=== PATIENT | male | born 1935 | race Caucasian/White ===

== ENCOUNTER 2017-04-07 08:00 | Day surgery (SDC) | payer BC ==
[~2017-04-07] VITALS: Ht 174 cm; Wt 75.0 kg
[~2017-04-07 08:00] MED LIST: AMLO-114 PO; ASPEC81 PO; ATOR-26 PO; B-COCAP20 PO; CALCTAB5 PO; CEFAZOLIN 1000MG/55 ML D5W IV SCH; CLON1TAB3 PO; CTP1 PO; D5W AND 1/4NSS 1,000 ML IV SCH; DOCU100C31 PO; HYDR-4717 PO; LSX40 PO; MCRK20 PO; METO50TA7 PO; MGNO400 PO; MRLP17X PO; OLME20TA26 PO; PANT40TA PO; SERT-234 PO; TAMS0.4C38 PO
[2017-04-07 08:29] VITALS: BP 176/62; PULSE 52; TEMP 37.1; O2SAT 97; Ht 174 cm; Wt 75.0 kg
--- NOTE | 2017-04-07 08:55 | History and Physical ---
History & Physical Date of Service Apr 07, 2017. History & Physical CC: End stage renal disease, malfunctioning left arm fistula HPI: Mr. Meyers is an 80-year-old gentleman with a history of hypertension, coronary artery occlusive disease and chronic kidney disease. He was sent over for evaluation for placement of the fistula being his GFR is approximately 13. He had a left antecubital avf created. He is having problems with his runs. ALLERGIES: NEOSPORIN. MEDICATIONS: Included amlodipine, aspirin, Benicar, calcium, clonidine, Colace , doxycycline, Epogen, Ferrex, hydralazine, K-Dur, Lipitor, Metamucil, metoprolol, pantoprazole, sertraline, tamsulosin. These were reviewed, no changes were made. PAST MEDICAL HISTORY: Positive for basal cell carcinoma, diabetes mellitus, coronary occlusive disease, hypertension, kidney disease, status post angioplasty. FAMILY HISTORY: Noncontributory. SOCIAL HISTORY: He is a social drinker, former smoker. He is . REVIEW OF SYSTEMS: Ten systems were reviewed. No pertinent findings were elicited. PHYSICAL EXAMINATION: The patient is awake, oriented x3. His blood pressure is 174/64 in the left, 180/60 in the right. Head and neck within normal limits , no carotid bruits. Lungs are clear. Heart: reg rate and rhythm. Abdominal exam is benign. Vascular exam of the radials, carotids, superficial temporal arteries are +2 bilaterally. Femorals are +2. There is no evidence of ischemic changes of either upper or lower extremities. Good thrill in left arm fistula IMPRESSION: Chronic renal failure. Malfunctioning left arm avf PLAN: Patient is admitted for a fistulogram with possible intervention. I have discussed the risks options and benefits of the procedure with the patient. The patient understands the risks options and benefits and agrees to the procedure.
[2017-04-07] MEDS ORDERED: MIDAZOLAM HCL 1 MG/ML 2ML VIAL ONE (09:55)
[2017-04-07] MEDS ORDERED: FENTANYL CITRATE INJ 50 MCG/1 ML 2 ML VIAL ONE (09:55)
--- NOTE | 2017-04-07 09:58 | History & Physical Bridge Note ---
H&P Re-Evaluation Bridge Note: I have examined the patient, reviewed the History & Physical and in the interval since the performance of the History & Physical I have noted the following changes of clinical significance: No changes noted
--- NOTE | 2017-04-07 09:59 | Procedure Note ---
Pre-Mod Sedation Assessment General Date of Moderate Sedation: Apr 07, 2017. Vital Signs: Vital Signs Past 12 Hours Date Time Temp Pulse Resp B/P (MAP) Pulse Ox O2 Delivery O2 Flow Rate FiO2 04/07/17 08:29 37.1 52 20 176/62 (100) 97 Room Air Pre-Sedation Airway Assessment Oral Cavity: Dentures Smoking Status: Former Smoker Mallampati Classification: Class I ASA Classification: Class III Notes The planned sedation has been discussed with the patient and consent obtained. I have identified the patient, determined the appropriateness of sedation and have assessed the patient immediately prior to the procedure. All medicine(s) and interventions are by my order.
[2017-04-07 10:03] VITALS: BP 176/62; PULSE 52; TEMP 37.1; O2SAT 97
[2017-04-07] MEDS ORDERED: LIDOCAINE HCL 1% 20 ML VIAL INJ ONE (10:39)
[2017-04-07] MEDS ORDERED: MIDAZOLAM HCL 1 MG/ML 2ML VIAL IV ONE (10:55)
[2017-04-07] MEDS ORDERED: FENTANYL CITRATE INJ 50 MCG/1 ML 2 ML VIAL IV ONE (10:56)
[2017-04-07] MEDS ORDERED: OPTIRAY 300 IV ONE (11:27)
--- NOTE | 2017-04-07 11:32 | Procedure Note ---
Post-Moderate Sedation Plan General Date of Moderate Sedation Apr 07, 2017. Vital Signs: Vital Signs Past 12 Hours Date Time Temp Pulse Resp B/P (MAP) Pulse Ox O2 Delivery O2 Flow Rate FiO2 04/07/17 10:03 37.1 52 20 176/62 97 04/07/17 08:29 37.1 52 20 176/62 (100) 97 Room Air Review - Discharge Plan Post Moderate Sedation Plan: On clinical assessment, the patient appears to have tolerated the conscious sedation without complications. Patient is recovering as anticipated. Patient will continue to be monitored by nursing and may be discharged when conscious sedation discharge criteria are met.
--- NOTE | 2017-04-07 11:32 | [facility] Post Operative Brief Note ---
Immediate Operative Summary Operative Date Apr 07, 2017. Pre-Operative Diagnosis malfunctioning fistula Post-Operative Diagnosis same Procedure(s) Performed Fistulogram, Percutaneous Transluminal Angioplasty Venous, Coiling of Venous Branch of Left Fistula, Moderate Concious Sedation [address] Nance Trimmer Meat Surgeon(s) Nevaeh Bowers MD Estimated Blood Loss 10 ml Findings Stenosis of upper cephalic vein, large side branch Specimens none Anesthesia Local with sedation Complication(s) None Disposition
--- NOTE | 2017-04-07 11:35 | Discharge Instructions ---
Discharge Instructions Date of Service Apr 07, 2017. Visit Reason for Visit: End Stage Renal Disease Discharge Discharge Diagnosis / Problem: Malfunctioning left upper arm fistula Discharge Goals Goal(s): Therapeutic intervention Activity Recommendations Activity Limitations: per Instructions/Follow-up section Anesthesia . Post Anesthesia Instructions: If you have had General Anesthesia or IV Sedation: * Do not drive today. * Resume driving when surgeon permits. * Do not make important decisions or sign legal documents today. * Call surgeon for: 1. Temperature elevations greater than 101 degrees F. 2. Uncontrollable pain. 3. Excessive bleeding. 4. Persistent nausea and vomiting. 5. Medication intolerance (nausea, vomiting or rash). * For nausea and vomiting use only clear liquids such as: tea, soda, bouillon until nausea subsides, then gradually increase diet as tolerated. * If you have any concerns or questions, call your surgeon's office. If physician is unavailable and it is an emergency, call 911 or go to the nearest emergency room. . Instructions / Follow-Up Instructions / Follow-Up Call [phone] with any questions or concerns. SPECIAL CARE INSTRUCTIONS: Medications: * Continue to take your medications as directed. If you have been given a prescription for Plavix, please fill it immediately and take as directed. Incision Care: * Your puncture site may have some bruising and minor swelling for about one week. * You will have a small dressing covering your puncture site. You may remove the dressing after 24 hours and shower. You may let the warm soapy water run over it, but be sure to dry the puncture site well and keep it dry. * DO NOT IMMERSE THE INCISION IN A TUB/POOL/etc. UNTIL HEALED. * Puncture sites should be kept covered with a band-aid until it begins to heal. Restrictions: * Depending on whether you leg or arm was punctured to access the arteries, you will be required to lay flat, hold your arm still, or both, for about 4 hours after the procedure to prevent bleeding. * Limit your activity for the first 48 hours. You may walk and go up and down steps. Avoid excessive bending or movement at the puncture site. Possible Complications: * Excessive Swelling - after blood flow is improved you may notice increased swelling in the lower legs. This is a normal response. This usually depends on the amount of blockages in the leg, how long they have been there prior to your procedure and how much blood flow was restored. Elevating your legs will help to improve this. Please notify our office ([phone] ) if the swelling does not go away after lying in bed overnight. * Infection/Drainage/Bleeding - Drainage or bleeding from the puncture site should be minimal. If you have excessive bleeding or drainage, call our office ([phone]) right away. * Pain - You may experience some mild pain or soreness at your puncture site. If your pain does not improve, please contact our office ([phone]). Call your doctor and seek emergent treatment if you develop: * Temperature above 101 degrees * Any fever or chills * Any redness or purulent drainage from the puncture site * Any new dusky/blue colored toes or feet with coolness or sharp or aching pain. SKIN IRRITATION: * You may experience some redness and/or swelling in the area where radiation was administered. If any skin irritation occurs, please contact your family physician. FOLLOW UP VISIT: Keep any scheduled doctor appointments. Diet Recommendations Recommended Home Diet: resume previous diet Procedures Procedures Performed: Fistulogram, Percutaneous Transluminal Angioplasty Venous, Coiling of Venous Branch of Left Fistula, Moderate Concious Sedation 1055 to 1129 Pending Studies Studies pending at discharge: no Medical Emergencies . Who to Call and When: Medical Emergencies: If at any time you feel your situation is an emergency, please call 911 immediately. . Non-Emergent Contact Non-Emergency issues call your: Surgeon . . "Provider Documentation" section prepared by Ciro Nance. .
[2017-04-07 11:43] VITALS: BP 178/57; PULSE 52; TEMP 36.3; O2SAT 98
[2017-04-07 12:13] VITALS: BP 160/70; PULSE 50; O2SAT 100
[2017-04-07 12:43] VITALS: BP 164/60; PULSE 54; TEMP 36.4; O2SAT 100
--- NOTE | 2017-04-07 13:38 | DIAGNOSTIC IMAGING REPORT ---
DATE OF PROCEDURE: 04/07/2017 PREOPERATIVE DIAGNOSIS: Left arm AV fistula dysfunction. POSTOPERATIVE DIAGNOSIS: Left arm AV fistula dysfunction. PROCEDURES: Left arm fistulogram, venoplasty of cephalic vein with 5 x 40 and 7 x 60 mm balloons, placement of 5 coils 6 mm -- left cephalic forearm, completion fistulogram. SURGEON: Dr. Ciro Nance. PREVENTION COORDINATOR: Dr. Jennifer Bowers. BLOOD LOSS: 10 mL. COMPLICATIONS: None. CONDITION: Stable. INDICATIONS: Mr. Angelo Meyers is an 81-year-old gentleman with end-stage renal disease, on hemodialysis through a left arm brachiocephalic AV fistula. He has had difficulties with flows during dialysis recently. For this reason, he was recommended to undergo a fistulogram. The risks, benefits and alternatives were discussed with the patient and he consented to the procedure. DESCRIPTION OF PROCEDURE: The patient was taken to the [facility] OR and placed in supine position. His left forearm and chest were prepped and draped in the usual sterile fashion. A safety timeout was performed and the patient, procedure, and sidedness were correctly identified. Sedation was administered. The patient was given 1 mg of Versed and 50 of fentanyl. Local anesthesia was used to anesthetize the skin overlying the cephalic vein in the antecubital fossa. A micropuncture needle was used to access the fistula and a micropuncture sheath placed into the left cephalic vein. Fistulogram was performed and showed an area of stenosis in the cephalic vein in the level of the mid arm. A 0.035 Glidewire was passed through the micropuncture sheath and into the cephalic vein. This easily passed through the area of stenosis. The micropuncture sheath was exchanged for a 5-Bahamian sheath. A 5 x 40 balloon was placed into the left cephalic vein and passed proximally to the cephalic arch. It was inflated there and showed no areas of stenosis of the cephalic arch. The balloon was moved back to the mid cephalic vein at the level of the mid humerus. This was inflated with some improvement in the stenosis. Given that there was still some degree of narrowing there, we upsized to a 7 x 60 mm balloon. This was inflated in the same area of stenosis with resolution of the narrowing. Completion fistulogram showed resolution of the stenosis. The fistula was also noted to have a large side branch coming off just proximal to the antecubital fossa. We were able to pass on 0.035 Glidewire down the side branch. A glide catheter was placed over the wire and into the side branch. We then began deploying coils through the catheter into the cephalic side branch in the forearm. A total of 5 coils were placed. This showed decreased flow through the side branch following coil placement. The thrill in the fistula had improved following angioplasty and coil placement. A 5-Bahamian sheath was removed and manual pressure was held over the access site for approximately 5 minutes with good hemostasis. Sterile dressing was applied. The patient tolerated the procedure well and was transferred to the PACU in stable condition. Dr. Ciro Nance was present for the entire procedure. I, Dr. Nance was present and scrubed for the entire procedure. [facility]
== END 2017-04-07 12:43 | disposition home or self-care (01) ==
LOC: C.ACU 08:00
PROVIDERS: ATTEND Surgery Vascular Surgery
DX: T82.858A Stenosis of other vascular prosthetic devices, implants and grafts, initial encounter (principal); Y83.1 Surgical operation with implant of artificial internal device as the cause of abnormal reaction of the patient, or of later complication, without mention of misadventure at the time of the procedure; N18.6 End stage renal disease; I12.0 Hypertensive chronic kidney disease with stage 5 chronic kidney disease or end stage renal disease; I25.10 Atherosclerotic heart disease of native coronary artery without angina pectoris; Z85.828 Personal history of other malignant neoplasm of skin; Z83.3 Family history of diabetes mellitus; E11.9 Type 2 diabetes mellitus without complications; Z98.890 Other specified postprocedural states; Z87.891 Personal history of nicotine dependence

== ENCOUNTER 2017-09-01 05:39 | Day surgery (SDC) | payer BC ==
[~2017-09-01] VITALS: Ht 172.7 cm; Wt 70.0 kg
[~2017-09-01 05:39] MED LIST changes: -CEFAZOLIN 1000MG/55 ML D5W IV SCH; -CLON1TAB3 PO; -CTP1 PO; -D5W AND 1/4NSS 1,000 ML IV SCH; -LSX40 PO; -MCRK20 PO; -MGNO400 PO
[2017-09-01] MEDS ORDERED: D5W AND 1/4NSS 1,000 ML IV ONE (06:00)
[2017-09-01] MEDS ORDERED: CEFAZOLIN 1000MG IV PUSH 5 ML IV SCH (06:00)
[2017-09-01 06:09] VITALS: BP 161/56; PULSE 52; TEMP 36.8; O2SAT 99; Ht 172.7 cm; Wt 70.0 kg
--- NOTE | 2017-09-01 06:34 | History and Physical ---
History & Physical Date of Service Sep 01, 2017. History & Physical CC: End stage renal disease, malfunctioning left arm fistula HPI: Mr. Meyers is an 80-year-old gentleman with a history of hypertension, coronary artery occlusive disease and chronic kidney disease. He was sent over for evaluation for the function of his fistula. He had a left antecubital avf created. He is having problems with his runs. ALLERGIES: NEOSPORIN. MEDICATIONS: Included amlodipine, aspirin, Benicar, calcium, clonidine, Colace , doxycycline, Epogen, Ferrex, hydralazine, K-Dur, Lipitor, Metamucil, metoprolol, pantoprazole, sertraline, tamsulosin. These were reviewed, no changes were made. PAST MEDICAL HISTORY: Positive for basal cell carcinoma, diabetes mellitus, coronary occlusive disease, hypertension, kidney disease, status post angioplasty. FAMILY HISTORY: Noncontributory. SOCIAL HISTORY: He is a social drinker, former smoker. He is . REVIEW OF SYSTEMS: Ten systems were reviewed. No pertinent findings were elicited. PHYSICAL EXAMINATION: The patient is awake, oriented x3. His blood pressure is 174/64 in the left, 180/60 in the right. Head and neck within normal limits , no carotid bruits. Lungs are clear. Heart: reg rate and rhythm. Abdominal exam is benign. Vascular exam of the radials, carotids, superficial temporal arteries are +2 bilaterally. Femorals are +2. There is no evidence of ischemic changes of either upper or lower extremities. Good thrill in left arm fistula IMPRESSION: Chronic renal failure. Malfunctioning left arm avf PLAN: Patient is admitted for a fistulogram with possible intervention. I have discussed the risks options and benefits of the procedure with the patient. The patient understands the risks options and benefits and agrees to the procedure.
[2017-09-01] MEDS ORDERED: MIDAZOLAM HCL 1 MG/ML 2ML VIAL ONE (07:40)
[2017-09-01] MEDS ORDERED: FENTANYL CITRATE INJ 50 MCG/1 ML 2 ML VIAL ONE (07:40)
[2017-09-01 07:54] VITALS: BP 161/56; PULSE 52; TEMP 36.8; O2SAT 99
--- NOTE | 2017-09-01 08:17 | Procedure Note ---
Pre-Mod Sedation Assessment General Date of Moderate Sedation: Sep 01, 2017. Vital Signs: Vital Signs Past 12 Hours Date Time Temp Pulse Resp B/P (MAP) Pulse Ox O2 Delivery O2 Flow Rate FiO2 09/01/17 07:54 36.8 52 18 161/56 99 Room Air 09/01/17 06:09 36.8 52 18 161/56 (91) 99 Room Air Pre-Sedation Airway Assessment Oral Cavity: Dentures Short Thick Neck: No Hx of Sleep Apnea: Yes Smoking Status: Former Smoker Mallampati Classification: Class I ASA Classification: Class III Notes The planned sedation has been discussed with the patient and consent obtained. I have identified the patient, determined the appropriateness of sedation and have assessed the patient immediately prior to the procedure. All medicine(s) and interventions are by my order.
[2017-09-01] MEDS ORDERED: LIDOCAINE HCL 1% 20 ML VIAL INJ ONE (08:54)
[2017-09-01] MEDS ORDERED: HydrALAZINE HCL 20 MG/ML VIAL ONE (09:06)
[2017-09-01] MEDS ORDERED: HydrALAZINE HCL 20 MG/ML VIAL IV. ONE (09:08)
[2017-09-01] MEDS ORDERED: MIDAZOLAM HCL 1 MG/ML 2ML VIAL IV ONE (09:18)
[2017-09-01] MEDS ORDERED: FENTANYL CITRATE INJ 50 MCG/1 ML 2 ML VIAL IV ONE (09:18)
[2017-09-01] MEDS ORDERED: OPTIRAY 300 IV ONE (09:26)
[2017-09-01 09:40] VITALS: BP 158/62; PULSE 51; TEMP 36.6; O2SAT 96
[2017-09-01 09:55] VITALS: BP 144/57; PULSE 50; TEMP 36.4; O2SAT 99
--- NOTE | 2017-09-01 10:04 | Procedure Note ---
Post-Moderate Sedation Plan General Date of Moderate Sedation Sep 01, 2017. Vital Signs: Vital Signs Past 12 Hours Date Time Temp Pulse Resp B/P (MAP) Pulse Ox O2 Delivery O2 Flow Rate FiO2 09/01/17 09:40 36.6 51 20 158/62 96 Room Air 09/01/17 09:31 99 16 /59 99 4 09/01/17 07:54 36.8 52 18 161/56 99 Room Air 09/01/17 06:09 36.8 52 18 161/56 (91) 99 Room Air Review - Discharge Plan Post Moderate Sedation Plan: On clinical assessment, the patient appears to have tolerated the conscious sedation without complications. Patient is recovering as anticipated. Patient will continue to be monitored by nursing and may be discharged when conscious sedation discharge criteria are met.
--- NOTE | 2017-09-01 10:14 | [facility] Operative Report ---
Operative Report Operative Date Sep 01, 2017. Pre-Operative Diagnosis malfunctioning fistula Post-Operative Diagnosis same Procedure(s) Performed Fistulogram, Coiling Of Branch, Percutaneous Transluminal Angioplasty Venous, Moderate Concious Sedation [address] Nance Secretary Book Keeper Surgeon(s) none Estimated Blood Loss 10 ml Findings better thrill, side branch occluded Specimens none Anesthesia Local with sedation Complication(s) None Disposition Indications This is a 2-year-old male with a left arm AV fistula which is having trouble at dialysis. Fistulogram was recommended with possible intervention. I have discussed the risks options and benefits of the procedure with the patient. The patient understands the risks options and benefits and agrees to the procedure. Description of Procedure The patient was taken to the angiogram suite and placed in the supine position. The left arm was then prepped and draped in a sterile manner. Local anesthetic was administered and a percutaneous puncture was then made of the proximal portion of the left arm AV fistula using micropuncture technique. Micropuncture wire and sheath were then inserted. A fistulogram was then performed. Fistulogram performed showed moderate stenosis of the fistula in the midportion of the upper arm. It also showed a large branch coming off the fistula going down the forearm. Coils were seen in this branch but occlusion of branch was not accomplished. We elected to recoil the branch and balloon angioplasty the fistula outflow tract. Central veins are widely patent without any evidence of stenosis. At this point the micropuncture sheath was exchanged to a 5 Spanish sheath. An 0355 Glidewire was passed through the sheath into the side branch. The 5 Spanish sheath was advanced into the side branch. Then using 5 Spanish angled guide catheter, we placed three 6 mm coils and stacked them on top of the old coils. A fistulogram done at that point showed no further flow down the branch. We then pulled the angled glide catheter back into the fistula as well as the sheath. The 035 wire was advanced up through the fistula. The sheath was exchanged to a 6 Spanish sheath. A balloon angioplasty of the narrowings in the fistula using an 8 x 4 balloon was performed. Good results were seen with minimal residual stenosis noted. Excellent flow was seen through the fistula and no contrast was seen going down the forearm. The sheath was then pulled and pressure was applied. Adequate hemostasis was obtained. The patient left the angiogram suite in good condition and tolerated the procedure well. I attest to the content of the Intraoperative Record and any orders documented therein. Any exceptions are noted below.
--- NOTE | 2017-09-01 10:14 | Discharge Instructions ---
Discharge Instructions Date of Service Sep 01, 2017. Visit Reason for Visit: End Stage Renal Disease -On Hemodialysis Discharge Discharge Diagnosis / Problem: Malfunctioning fisltula Discharge Goals Goal(s): Therapeutic intervention Activity Recommendations Activity Limitations: resume your previous activity Anesthesia . Post Anesthesia Instructions: If you have had General Anesthesia or IV Sedation: * Do not drive today. * Resume driving when surgeon permits. * Do not make important decisions or sign legal documents today. * Call surgeon for: 1. Temperature elevations greater than 101 degrees F. 2. Uncontrollable pain. 3. Excessive bleeding. 4. Persistent nausea and vomiting. 5. Medication intolerance (nausea, vomiting or rash). * For nausea and vomiting use only clear liquids such as: tea, soda, bouillon until nausea subsides, then gradually increase diet as tolerated. * If you have any concerns or questions, call your surgeon's office. If physician is unavailable and it is an emergency, call 911 or go to the nearest emergency room. . Instructions / Follow-Up Instructions / Follow-Up Call [phone] to schedule a follow up appointment if one not already scheduled. SPECIAL CARE INSTRUCTIONS: Medications: * Continue to take your medications as directed. If you have been given a prescription for Plavix, please fill it immediately and take as directed. Incision Care: * Your puncture site may have some bruising and minor swelling for about one week. * You will have a small dressing covering your puncture site. You may remove the dressing after 24 hours and shower. You may let the warm soapy water run over it, but be sure to dry the puncture site well and keep it dry. * DO NOT IMMERSE THE INCISION IN A TUB/POOL/etc. UNTIL HEALED. * Puncture sites should be kept covered with a band-aid until it begins to heal. Restrictions: * Depending on whether you leg or arm was punctured to access the arteries, you will be required to lay flat, hold your arm still, or both, for about 4 hours after the procedure to prevent bleeding. * Limit your activity for the first 48 hours. You may walk and go up and down steps. Avoid excessive bending or movement at the puncture site. Possible Complications: * Excessive Swelling - after blood flow is improved you may notice increased swelling in the lower legs. This is a normal response. This usually depends on the amount of blockages in the leg, how long they have been there prior to your procedure and how much blood flow was restored. Elevating your legs will help to improve this. Please notify our office ([phone] ) if the swelling does not go away after lying in bed overnight. * Infection/Drainage/Bleeding - Drainage or bleeding from the puncture site should be minimal. If you have excessive bleeding or drainage, call our office ([phone]) right away. * Pain - You may experience some mild pain or soreness at your puncture site. If your pain does not improve, please contact our office ([phone]). Call your doctor and seek emergent treatment if you develop: * Temperature above 101 degrees * Any fever or chills * Any redness or purulent drainage from the puncture site * Any new dusky/blue colored toes or feet with coolness or sharp or aching pain. SKIN IRRITATION: * You may experience some redness and/or swelling in the area where radiation was administered. If any skin irritation occurs, please contact your family physician. FOLLOW UP VISIT: Keep any scheduled doctor appointments. Diet Recommendations Recommended Home Diet: resume previous diet Procedures Procedures Performed: Fistulogram, Coiling Of Branch, Percutaneous Transluminal Angioplasty Venous, Moderate Concious Sedation 0918 to 0931 Pending Studies Studies pending at discharge: no Medical Emergencies . Who to Call and When: Medical Emergencies: If at any time you feel your situation is an emergency, please call 911 immediately. . Non-Emergent Contact Non-Emergency issues call your: Surgeon . . "Provider Documentation" section prepared by Ciro Nance. .
[2017-09-01] MEDS ORDERED: OXYCODONE/ACETAMINOPHEN 5-325 TAB PO PRN (10:15)
[2017-09-01 10:36] VITALS: BP 139/49; PULSE 50; TEMP 36.4; O2SAT 99
== END 2017-09-01 10:45 | disposition home or self-care (01) ==
LOC: C.ACU 05:39
PROVIDERS: ATTEND Surgery Vascular Surgery
DX: T82.898A Other specified complication of vascular prosthetic devices, implants and grafts, initial encounter (principal); N18.6 End stage renal disease; Y82.8 Other medical devices associated with adverse incidents; I25.10 Atherosclerotic heart disease of native coronary artery without angina pectoris; I12.0 Hypertensive chronic kidney disease with stage 5 chronic kidney disease or end stage renal disease; Z79.82 Long term (current) use of aspirin; Z85.820 Personal history of malignant melanoma of skin; E11.9 Type 2 diabetes mellitus without complications; Z98.61 Coronary angioplasty status

== ENCOUNTER → 2017-12-15 | Outpatient (CLI) | payer BC, OTHER ==
[~2017-12-15] MED LIST changes: -DOCU100C31 PO; -METO50TA7 PO; +METO50TA8 PO; -MRLP17X PO; -OLME20TA26 PO
[2017-12-15 09:50] LABS: HEMOGLOBIN A1C 4.8 % (4.5-5.6)
== END | disposition home or self-care (01) ==
LOC: C.LAB1850 07:24
PROVIDERS: ATTEND Internal Medicine Cardiovascular Disease
DX: R73.03 Prediabetes (principal); E78.5 Hyperlipidemia, unspecified

== ENCOUNTER → 2018-01-12 | Day surgery (SDC) | payer BC, OTHER ==
[~2018-01-12] VITALS: Ht 172.7 cm; Wt 75.0 kg
[~2018-01-12] MED LIST changes: +B-CO1CAP17 PO; +CEFAZOLIN 1000MG IV PUSH 7.5 ML IV SCH; +D5W AND 1/4NSS 1,000 ML IV SCH; +FENTANYL CITRATE INJ 50 MCG/1 ML 2 ML VIAL IV ONE; +FENTANYL CITRATE INJ 50 MCG/1 ML 2 ML VIAL ONE; +HydrALAZINE HCL 20 MG/ML VIAL IV. ONE; +HydrALAZINE HCL 20 MG/ML VIAL ONE; +LIDOCAINE HCL 1% 20 ML VIAL INJ ONE; +MIDAZOLAM HCL 1 MG/ML 2ML VIAL IV ONE; +MIDAZOLAM HCL 1 MG/ML 2ML VIAL ONE; +OLME40TA30 PO; +OPTIRAY 300 IV ONE
--- NOTE | 2018-01-12 05:55 | History and Physical ---
History & Physical Date of Service Jan 12, 2018. History & Physical CC: End stage renal disease, malfunctioning left arm fistula HPI: Mr. Meyers is an 80-year-old gentleman with a history of hypertension, coronary artery occlusive disease and chronic kidney disease. He has a left antecubital avf created. He is having problems with his runs. He had coiling of a side branch and a [employer] of the fistula in the last few months. ALLERGIES: NEOSPORIN. MEDICATIONS: Included amlodipine, aspirin, Benicar, calcium, clonidine, Colace , doxycycline, Epogen, Ferrex, hydralazine, K-Dur, Lipitor, Metamucil, metoprolol, pantoprazole, sertraline, tamsulosin. These were reviewed, no changes were made. PAST MEDICAL HISTORY: Positive for basal cell carcinoma, diabetes mellitus, coronary occlusive disease, hypertension, kidney disease, status post angioplasty. FAMILY HISTORY: Noncontributory. SOCIAL HISTORY: He is a social drinker, former smoker. He is . REVIEW OF SYSTEMS: Ten systems were reviewed. No pertinent findings were elicited. PHYSICAL EXAMINATION: The patient is awake, oriented x3. His blood pressure is 174/64 in the left, 180/60 in the right. Head and neck within normal limits , no carotid bruits. Lungs are clear. Heart: reg rate and rhythm. Abdominal exam is benign. Vascular exam of the radials, carotids, superficial temporal arteries are +2 bilaterally. Femorals are +2. There is no evidence of ischemic changes of either upper or lower extremities. Good thrill in left arm fistula IMPRESSION: Chronic renal failure. Malfunctioning left arm avf PLAN: Patient is admitted for a fistulogram with possible intervention. I have discussed the risks options and benefits of the procedure with the patient. The patient understands the risks options and benefits and agrees to the procedure.
--- NOTE | 2018-01-12 09:33 | Pre Sedation Assessment ---
Pre Sedation Assessment General Date of Sedation: Jan 12, 2018. Review Cardiovascular: regular rate, rhythm Lungs: lungs clear Pre-Sedation Airway Assessment Smoking Status: Former Smoker Hx of Sleep Apnea: No Hx of difficult intubation: No Short Thick Neck: No Thyro-mental Distance: > 3 Finger Breadths Oral Cavity: Dentures Mallampati Classification: Class I ASA Classification: Class III NPO Status Date of Last Intake of Fluids: Jan 11, 2018 Time of Last Intake of Fluids: 18:00 Date of Last Intake of Solids: Jan 11, 2018 Time of Last Intake of Solids: 18:00 Procedure Planning Contraindications for Sedation: None Current Medications Reviewed: Yes Notes The planned sedation has been discussed with the patient. Informed Consent was obtained. I have identified the patient, determined the appropriateness of sedation and have assessed the patient immediately prior to the procedure. All medicine(s) and interventions are by my order.
[2018-01-12 09:50] VITALS: BP 137/75; PULSE 61; TEMP 36.6; O2SAT 98; Ht 172.7 cm; Wt 75.0 kg
--- NOTE | 2018-01-12 12:10 | [facility] Post Operative Brief Note ---
Immediate Operative Summary Operative Date Jan 12, 2018. Pre-Operative Diagnosis Malfunctioning Fistula, Left Arm Swelling Post-Operative Diagnosis Malfunctioning Fistula, Left Arm Swelling, subclavian vein stenosis Procedure(s) Performed Fistulogram, Percutaneous Transluminal Angioplasty Left Subclavian Vein, Moderate Sedation from 1145 - 1158. Surgeon Dr. Nance Manager Training Surgeon(s) none Estimated Blood Loss 10 Findings Consistent with Post-Op Diagnosis Specimens None Drains None Anesthesia Type None Complication(s) none Disposition Accompanied Pt To Recover: no Disposition:
--- NOTE | 2018-01-12 12:16 | Discharge Instructions ---
Discharge Instructions Date of Service Jan 12, 2018. Visit Reason for Visit: End Stage Renal Disease -On Hemodialysis Discharge Discharge Diagnosis / Problem: Left arm edema, malfunctioning left arm fistula Discharge Goals Goal(s): Therapeutic intervention Activity Recommendations Activity Limitations: per Instructions/Follow-up section Anesthesia . Post Anesthesia Instructions: If you have had General Anesthesia or IV Sedation: * Do not drive today. * Resume driving when surgeon permits. * Do not make important decisions or sign legal documents today. * Call surgeon for: 1. Temperature elevations greater than 101 degrees F. 2. Uncontrollable pain. 3. Excessive bleeding. 4. Persistent nausea and vomiting. 5. Medication intolerance (nausea, vomiting or rash). * For nausea and vomiting use only clear liquids such as: tea, soda, bouillon until nausea subsides, then gradually increase diet as tolerated. * If you have any concerns or questions, call your surgeon's office. If physician is unavailable and it is an emergency, call 911 or go to the nearest emergency room. . Instructions / Follow-Up Instructions / Follow-Up Call [phone] to schedule a follow up appointment if one not already scheduled. SPECIAL CARE INSTRUCTIONS: Medications: * Continue to take your medications as directed. If you have been given a prescription for Plavix, please fill it immediately and take as directed. Incision Care: * Your puncture site may have some bruising and minor swelling for about one week. * You will have a small dressing covering your puncture site. You may remove the dressing after 24 hours and shower. You may let the warm soapy water run over it, but be sure to dry the puncture site well and keep it dry. * DO NOT IMMERSE THE INCISION IN A TUB/POOL/etc. UNTIL HEALED. * Puncture sites should be kept covered with a band-aid until it begins to heal. Restrictions: * Depending on whether you leg or arm was punctured to access the arteries, you will be required to lay flat, hold your arm still, or both, for about 4 hours after the procedure to prevent bleeding. * Limit your activity for the first 48 hours. You may walk and go up and down steps. Avoid excessive bending or movement at the puncture site. Possible Complications: * Excessive Swelling - after blood flow is improved you may notice increased swelling in the lower legs. This is a normal response. This usually depends on the amount of blockages in the leg, how long they have been there prior to your procedure and how much blood flow was restored. Elevating your legs will help to improve this. Please notify our office ([phone] ) if the swelling does not go away after lying in bed overnight. * Infection/Drainage/Bleeding - Drainage or bleeding from the puncture site should be minimal. If you have excessive bleeding or drainage, call our office ([phone]) right away. * Pain - You may experience some mild pain or soreness at your puncture site. If your pain does not improve, please contact our office ([phone]). Call your doctor and seek emergent treatment if you develop: * Temperature above 101 degrees * Any fever or chills * Any redness or purulent drainage from the puncture site * Any new dusky/blue colored toes or feet with coolness or sharp or aching pain. SKIN IRRITATION: * You may experience some redness and/or swelling in the area where radiation was administered. If any skin irritation occurs, please contact your family physician. FOLLOW UP VISIT: Keep any scheduled doctor appointments. Diet Recommendations Recommended Home Diet: resume previous diet Procedures Procedures Performed: Fistulogram, Percutaneous Transluminal Angioplasty Left Subclavian Vein, Moderate Sedation from 1145 - 1158. Pending Studies Studies pending at discharge: no Medical Emergencies . Who to Call and When: Medical Emergencies: If at any time you feel your situation is an emergency, please call 911 immediately. . Non-Emergent Contact Non-Emergency issues call your: Surgeon . . "Provider Documentation" section prepared by Ciro Nance. .
--- NOTE | 2018-01-12 12:21 | Post Sedation Assessment ---
Post Sedation Assessment General Date of Sedation Jan 12, 2018. Vital Signs: Vital Signs Past 12 Hours Date Time Temp Pulse Resp B/P (MAP) Pulse Ox O2 Delivery O2 Flow Rate FiO2 01/12/18 12:03 Mask 4 01/12/18 11:58 Mask 4 01/12/18 11:55 Mask 4 01/12/18 11:50 Mask 4 01/12/18 11:45 Mask 4 01/12/18 11:40 Mask 4 01/12/18 11:35 Mask 4 01/12/18 11:30 Mask 4 01/12/18 09:50 36.6 61 20 137/75 (95) 98 Room Air Post Procedure Recovery Score Activity: (2) Moves 4 extremities * Respiration: (2) Deep breath/cough Circulation: (2) +/-20% PreAnes Value Consciousness: (2) Fully Awake Oxygen Saturation: (2) > 92% On Room Air Post Anesthesia Score: 10 Discharge Sedation Level of Care: Fast Track Phase II Post Sedation Plan On clinical assessment, the patient appears to have tolerated the sedation without complications. Patient is recovering as anticipated. Patient will continue to be monitored by nursing and may be discharged when sedation discharge criteria are met per below protocol. Upon Completions of procedure and additional 15 minutes continue every 5 minute vital signs and the P.A.R. score; then discharge to a Phase I or Fast Track to Phase II per the following guidelines: * Discharge Patient to appropriate Phase II area if PAR is 8 or greater or return to pre- procedure baseline. The post - procedure orders will be as directed. * If PAR score is less than 8 or not return to pre-procedure baseline then patient will follow Phase I monitoring till PAR is reached for Phase II. The Phase I may be done in procedure room or may call to secure a Phase I area. * If naloxone or flumazenil are used for reversal, hold in Phase I for an additional 60 -120 minutes before discharge to Phase II. Please call the Sedation Physician to re-evaluate and complete post-note for discharge to Phase II area. Do NOT discharge from procedure sedation or Phase 1 until post- sedation evaluation note is complete by procedure /sedation MD Sedation Discharge Instructions to be given to the patient at discharge to home.
--- NOTE | 2018-01-12 12:21 | [facility] Operative Report ---
Operative Report Operative Date Jan 12, 2018. Pre-Operative Diagnosis Malfunctioning Fistula, Left Arm Swelling Post-Operative Diagnosis Malfunctioning Fistula, Left Arm Swelling, subclavian vein stenosis Procedure(s) Performed Fistulogram, Percutaneous Transluminal Angioplasty Left Subclavian Vein, Moderate Sedation from 1145 - 1158. Surgeon Dr. Nance Crusher Setter Surgeon(s) none Estimated Blood Loss 10 Findings Left subclavian vein stenosis Specimens None Drains None Anesthesia Type IV Sedat Cons RN Only Complication(s) none Disposition no Indications This is an 82-year-old gentleman with left arm fistula which is malfunctioning along with left arm edema. Fistulogram was recommended with possible intervention.I have discussed the risks options and benefits of the procedure with the patient. The patient understands the risks options and benefits and agrees to the procedure. Description of Procedure The patient was taken to the angiogram suite and placed in the supine position. The left arm was then prepped and draped in a sterile manner. Local anesthetic was administered and a percutaneous puncture was then made of the proximal portion of the left arm AV fistula using micropuncture technique. Micropuncture wire and sheath were then inserted. A fistulogram was then performed. This fistulogram showed a widely patent left arm fistula. There was good outflow through the cephalic vein. There was a tight stenosis seen in the left subclavian vein. The left innominate vein was widely patent. An 035 wire was then inserted and the micropuncture sheath was exchanged to a 6 Bengali sheath. An 035 wire was inserted and passed through the subclavian vein lesion. This was then dilated with an 8 x 4 Chester balloon. A good result was seen with the balloon angioplasty. We then exchanged to a 9 x 4 Lutonics balloon. This was inflated to 11 ema and held for 2 minutes. The balloon was then removed along with the wire. Excellent results were seen with good rapid flow through the subclavian vein. The sheath was then pulled and pressure was applied. Adequate hemostasis was obtained. The patient left the angiogram suite in good condition and tolerated the procedure well. I attest to the content of the Intraoperative Record and any orders documented therein. Any exceptions are noted below.
[2018-01-12 12:30] VITALS: BP 176/75; PULSE 60; TEMP 36.5; O2SAT 97
[2018-01-12 12:45] VITALS: BP 172/84; PULSE 62; O2SAT 97
[2018-01-12 13:00] VITALS: BP 180/70; PULSE 61; TEMP 36.5; O2SAT 97
== END | disposition home or self-care (01) ==
LOC: C.ACU 08:45
PROVIDERS: ATTEND Surgery Vascular Surgery
DX: T82.858A Stenosis of other vascular prosthetic devices, implants and grafts, initial encounter (principal); Y83.1 Surgical operation with implant of artificial internal device as the cause of abnormal reaction of the patient, or of later complication, without mention of misadventure at the time of the procedure; N18.6 End stage renal disease; I87.1 Compression of vein; I12.0 Hypertensive chronic kidney disease with stage 5 chronic kidney disease or end stage renal disease; I25.10 Atherosclerotic heart disease of native coronary artery without angina pectoris; Z79.899 Other long term (current) drug therapy; Z79.82 Long term (current) use of aspirin; E11.9 Type 2 diabetes mellitus without complications; Z95.5 Presence of coronary angioplasty implant and graft; Z87.891 Personal history of nicotine dependence; Z85.828 Personal history of other malignant neoplasm of skin; Z99.2 Dependence on renal dialysis

== ENCOUNTER 2018-06-03 16:40 | Inpatient (IN) | payer BC, OTHER ==
[~2018-06-03] VITALS: Ht 172.7 cm; Wt 68.7 kg
[~2018-06-03 16:40] MED LIST changes: -AMLO-114 PO; +AMLO10TA3 PO; -ASPEC81 PO; +ASPI81TA28 PO; -ATOR-26 PO; -B-CO1CAP17 PO; -B-COCAP20 PO; +CALC-51 PO; -CALCTAB5 PO; -CEFAZOLIN 1000MG IV PUSH 7.5 ML IV SCH; +CRG25 PO; -D5W AND 1/4NSS 1,000 ML IV SCH; -FENTANYL CITRATE INJ 50 MCG/1 ML 2 ML VIAL IV ONE; -FENTANYL CITRATE INJ 50 MCG/1 ML 2 ML VIAL ONE; -HydrALAZINE HCL 20 MG/ML VIAL IV. ONE; -HydrALAZINE HCL 20 MG/ML VIAL ONE; -LIDOCAINE HCL 1% 20 ML VIAL INJ ONE; -METO50TA8 PO; -MIDAZOLAM HCL 1 MG/ML 2ML VIAL IV ONE; -MIDAZOLAM HCL 1 MG/ML 2ML VIAL ONE; -OPTIRAY 300 IV ONE
[2018-06-03] MEDS ORDERED: NITROGLYCERIN 2% OINTMENT 30GM TUBE EXT ONE (17:00)
[2018-06-03 17:02] LABS: BASO % 0.4 %; BASO ABS # 0.02 K/uL (0-0.2); EOS % 2.3 %; EOS ABS # 0.11 K/uL (0-0.5); HEMATOCRIT 30.4 % (42-52); HEMOGLOBIN 9.7 g/dL (14.0-18.0); IG# 0.01 K/uL (0.00-0.02); LYMPH % 17.4 %; LYMPH ABS # 0.83 K/uL (1.2-3.4); MEAN CELL VOLUME 96.2 fL (80-100); MEAN CORPUSCULAR HEMOGLOBIN 30.7 pg (25-34); MEAN CORPUSCULAR HGB CONC 31.9 g/dl (32-36); MEAN PLATELET VOLUME 10.5 fL (7.4-10.4); MONO % 16.5 %; MONO ABS # 0.79 K/uL (0.11-0.59); NEUT % 63.2 %; NEUT ABS # 3.02 K/uL (1.4-6.5); PLATELET COUNT 147 K/uL (130-400); RED CELL DISTRIBUTION WIDTH CV 15.6 % (11.5-14.5); RED CELL DISTRIBUTION WIDTH SD 54.9 fL (36.4-46.3); WHITE BLOOD COUNT 4.78 K/uL (4.8-10.8)
--- NOTE | 2018-06-03 17:12 | DIAGNOSTIC IMAGING REPORT ---
CHEST ONE VIEW PORTABLE CLINICAL HISTORY: cp dyspnea COMPARISON STUDY: 03/20/2018 FINDINGS: Mild increase in cardiac size. Mild prominence of pulmonary vasculature. Diaphragms are smooth. IMPRESSION: Cardiomegaly. Early congestive heart failure. The above report was generated using voice recognition software. It may contain grammatical, syntax or spelling errors. Electronically signed by: John Willams M.D. 06/03/2018 5:11 PM Dictated Date/Time: 06/03/2018 5:10 PM
[2018-06-03 17:41] LABS: CALCIUM 8.7 mg/dl (8.5-10.1); CREATININE 5.3 mg/dl (0.60-1.40); POTASSIUM 4.7 mmol/L (3.5-5.1)
[2018-06-03] MEDS ORDERED: ONDANSETRON INJ 2 MG/ML 2 ML VIAL IV STA (17:50)
[2018-06-03] MEDS ORDERED: MoRPHine SULFATE 4 MG/ML 1 ML CARP\\VIAL IV STA (17:50)
[2018-06-03 17:56] LABS: INR 1.1 (0.9-1.1); PTT PATIENT 28.5 SECONDS (21.0-31.0)
[2018-06-03 18:38] LABS: TOTAL PROTEIN 6.9 gm/dl (6.4-8.2)
[2018-06-03 18:49] LABS: ALBUMIN 3.7 gm/dl (3.4-5.0)
--- NOTE | 2018-06-03 20:02 | DIAGNOSTIC IMAGING REPORT ---
ABDOMINAL ULTRASOUND, RIGHT UPPER QUADRANT HISTORY: Right upper quadrant abdominal pain. COMPARISON: Renal ultrasound December 17, 2015. FINDINGS: Liver morphology is normal. Liver is slightly echogenic. Mild dilatation of the common bile duct, measuring 8 mm, is noted. The pancreas is obscured by overlying bowel gas. The gallbladder is mildly distended. No sonographic Campos sign was noted. A small amount of echogenic nonshadowing material within the gallbladder may reflect tiny stones or sludge. There is no gallbladder wall thickening. There is no right hydronephrosis. The right kidney is echogenic. Multiple small cysts are noted within the right kidney. IMPRESSION: 1. Suspected tiny stones within the gallbladder. Mild gallbladder distention. No gallbladder wall thickening or sonographic Campos sign. No definite evidence for acute cholecystitis although a hepatobiliary scan could be obtained if clinically indicated. 2. Mild dilatation of the common bile duct. No common bile duct calculi identified although distal common bile duct obscured. Finding could be correlated with obstructive liver function tests. 3. Obscured pancreas. 4. Echogenic right kidney consistent with medical renal disease. Electronically signed by: Fabricio Gamez M.D. 06/03/2018 8:01 PM Dictated Date/Time: 06/03/2018 7:59 PM
[2018-06-03] MEDS ORDERED: ONDANSETRON INJ 2 MG/ML 2 ML VIAL IV PRN (20:45)
[2018-06-03] MEDS ORDERED: ATOR-26 PO (20:55)
[2018-06-03] MEDS ORDERED: OLME40TA33 PO (20:58)
[2018-06-03] MEDS ORDERED: MULT-513 PO (20:59)
[2018-06-03] MEDS ORDERED: ACETAMINOPHEN IV 100 ML IV PRN (21:00)
[2018-06-03] MEDS ORDERED: AMLODIPINE BESYLATE 5 MG TAB PO ONE (21:30)
[2018-06-03] MEDS ORDERED: CARVEDILOL 25 MG TAB PO ONE (21:30)
--- NOTE | 2018-06-03 21:37 | History and Physical ---
History & Physical Date & Time of Service: Jun 03, 2018 at 20:57 Chief Complaint: Chest Pain Primary Care Physician: Gautam Joseph M.D. History of Present Illness Source: patient The patient is an 82 year old male with a pmh of ESRD on dialysis, Diastolic CHF , HTN, CAD, HLD, and BPH that presents with a acute chest and RUQ pain. At 2pm this afternoon the patient began to develop lower substernal pain that was constant, sharp, and non radiating. The pain was initially 2-3/10 but continued to progress to a 5-6/10 sharp pain at 5pm that prompted his family to call EMS. The patient denies any associated shortness of breath, palpitations, diaphoresis , nausea, vomiting, diarrhea, fevers, chills or sweats. He does appreciate having some back discomfort earlier in the day that resolved on its own. The patient attends dialysis on T, Th, Sat and is scheduled as an outpatient tomorrow. The patient received 2 doses of NTG in the ED with no improvement, although his pain did resolve after treatment with morphine. Past Medical/Surgical History Medical Problems: (1) Acute diastolic (congestive) heart failure (2) Acute on chronic renal failure (3) Acute respiratory failure (4) MARLENE (acute kidney injury) (5) Anemia (6) Anemia (7) Anemia in chronic kidney disease (8) Bleeding from dialysis shunt (9) CHF (congestive heart failure) (10) Chronic kidney disease, stage V (very severe) (11) CKD (chronic kidney disease) stage 3, GFR 30-59 ml/min (12) Elevated troponin (13) Flash pulmonary edema (14) Fluid overload (15) Fluid overload (16) Hypertension (17) Hypertensive urgency (18) Hypokalemia (19) Hyponatremia (20) Iron deficiency anemia (21) Lower extremity edema (22) Pneumonia (23) Proteinuria (24) RUQ abdominal pain (25) Shortness of breath (26) Volume overload Family History Heart disease MOTHER Multiple myeloma FATHER Social History Smoking Status: Never Smoker Drug Use: none Marital Status: Housing status: lives with family Occupational Status: employed Immunizations History of Influenza Vaccine: Yes History of Tetanus Vaccine?: No History of Pneumococcal: No History of Hepatitis B Vaccine: Yes Allergies Coded Allergies: Bacitracin (Verified Allergy, Unknown, LOCALIZED RASH, 03/20/18) Neomycin (Verified Allergy, Unknown, LOCALIZED RASH, 03/20/18) Polymyxin B (Verified Allergy, Unknown, LOCALIZED RASH, 03/20/18) Home Medications Scheduled Amlodipine (Norvasc), 10 MG PO QPM Aspirin (Aspirin Ec), 81 MG PO HS Atorvastatin (Lipitor), 80 MG PO QPM Calcium Carbonate-Vitamin D (Calcium), 1 TAB PO BID Carvedilol (Carvedilol), 25 MG PO BID Hydralazine Hcl (Apresoline), 100 MG PO TID Multivitamins/Minerals (Mvi With Minerals), 1 TAB PO DAILY Olmesartan Medoxomil (Olmesartan Medoxomil), 40 MG PO DAILY Pantoprazole (Protonix), 40 MG PO QAM Sertraline (Zoloft), 100 MG PO HS Tamsulosin Hcl (Flomax), 0.4 MG PO HS Review of Systems Constitutional: No fever, No chills, No sweats, No weight loss, No fatigue Respiratory: No cough, No sputum, No wheezing, No shortness of breath, No dyspnea on exertion Cardiovascular: No chest pain, No edema, No palpitations Abdomen: + pain (RUQ), No nausea, No vomiting, No diarrhea Musculoskeletal: No joint pain, No swelling Genitourinary - Male: No hematuria, No dysuria Endocrine: No fatigue, No excessive thirst Physical Exam Vital Signs Date Time Temp Pulse Resp B/P (MAP) Pulse Ox O2 Delivery O2 Flow Rate FiO2 06/03/18 19:36 56 15 93 06/03/18 19:31 178/70 06/03/18 19:28 163/68 06/03/18 18:36 60 20 97 06/03/18 18:31 184/79 06/03/18 18:25 59 17 96 06/03/18 18:16 174/69 06/03/18 18:10 63 16 98 06/03/18 18:01 184/65 06/03/18 17:55 62 12 97 06/03/18 17:46 174/69 06/03/18 17:40 63 20 95 06/03/18 17:31 177/86 06/03/18 17:25 62 20 95 06/03/18 17:16 178/69 06/03/18 17:10 61 18 93 06/03/18 17:09 184/72 06/03/18 17:09 62 22 184/72 98 Room Air 06/03/18 16:47 96 Room Air 06/03/18 16:47 96 Room Air 06/03/18 16:47 37.2 65 20 175/66 96 Room Air 06/03/18 16:43 175/66 General Appearance: WD/WN, no apparent distress Head: normocephalic, atraumatic Eyes: normal inspection, sclerae normal Neck: supple, no carotid bruits Respiratory/Chest: chest non-tender, lungs clear, normal breath sounds Cardiovascular: no edema, normal peripheral pulses, + systolic murmur Abdomen/GI: normal bowel sounds, soft, + tenderness (Mild RUQ tenderness), + pertinent finding (No rebound or guarding) Back: normal inspection, no CVA tenderness Extremities/Musculoskelatal: no calf tenderness, no pedal edema Neurologic/Psych: alert, normal mood/affect, oriented x 3 Diagnostics Laboratory Results Results Past 24 Hours Test 06/03/18 16:27 06/03/18 16:59 06/03/18 17:37 06/03/18 19:58 Range/Units White Blood Count 4.78 4.8-10.8 K/uL Red Blood Count 3.16 4.7-6.1 M/uL Hemoglobin 9.7 14.0-18.0 g/dL Hematocrit 30.4 42-52 % Mean Corpuscular Volume 96.2 80-100 fL Mean Corpuscular Hemoglobin 30.7 25-34 pg Mean Corpuscular Hemoglobin Concent 31.9 32-36 g/dl Platelet Count 147 130-400 K/uL Mean Platelet Volume 10.5 7.4-10.4 fL Neutrophils (%) (Auto) 63.2 % Lymphocytes (%) (Auto) 17.4 % Monocytes (%) (Auto) 16.5 % Eosinophils (%) (Auto) 2.3 % Basophils (%) (Auto) 0.4 % Neutrophils # (Auto) 3.02 1.4-6.5 K/uL Lymphocytes # (Auto) 0.83 1.2-3.4 K/uL Monocytes # (Auto) 0.79 0.11-0.59 K/uL Eosinophils # (Auto) 0.11 0-0.5 K/uL Basophils # (Auto) 0.02 0-0.2 K/uL RDW Standard Deviation 54.9 36.4-46.3 fL RDW Coefficient of Variation 15.6 11.5-14.5 % Immature Granulocyte % (Auto) 0.2 % Immature Granulocyte # (Auto) 0.01 0.00-0.02 K/uL Sodium Level 129 136-145 mmol/L Potassium Level 4.7 3.5-5.1 mmol/L Chloride Level 94 98-107 mmol/L Carbon Dioxide Level 28 21-32 mmol/L Anion Gap 7.0 3-11 mmol/L Blood Urea Nitrogen 51 7-18 mg/dl Creatinine 5.30 0.60-1.40 mg/dl Est Creatinine Clear Calc Drug Dose 10.4 ml/min Estimated GFR () 10.8 Estimated GFR (Non- 9.3 BUN/Creatinine Ratio 9.5 10-20 Random Glucose 103 70-99 mg/dl Calcium Level 8.7 8.5-10.1 mg/dl Total Bilirubin 0.9 0.2-1 mg/dl Direct Bilirubin 0.4 0-0.2 mg/dl Aspartate Amino Transf (AST/SGOT) 57 15-37 U/L Alanine Aminotransferase (ALT/SGPT) 32 12-78 U/L Alkaline Phosphatase 65 45-117 U/L Total Protein 6.9 6.4-8.2 gm/dl Albumin 3.7 3.4-5.0 gm/dl Lipase 329 73-393 U/L Bedside Troponin I < 0.030 < 0.030 0-0.045 ng/ml Prothrombin Time 11.6 9.0-12.0 SECONDS Prothromb Time International Ratio 1.1 0.9-1.1 Activated Partial Thromboplast Time 28.5 21.0-31.0 SECONDS Partial Thromboplastin Ratio 1.1 Impression Assessment and Plan The patient is an 82 year old male with a pmh of ESRD on dialysis, Diastolic CHF , HTN, CAD, HLD, and BPH that presents with a acute chest and RUQ pain Cholecystitis - Gallbladder US: 1. Suspected tiny stones within the gallbladder. Mild gallbladder distention. No gallbladder wall thickening or sonographic Campos sign. No definite evidence for acute cholecystitis although a hepatobiliary scan could be obtained if clinically indicated. 2. Mild dilatation of the common bile duct. No common bile duct calculi identified although distal common bile duct obscured. Finding could be correlated with obstructive liver function tests. - CXR: Cardiomegaly. Early congestive heart failure. - EKG: Left axis deviation, LBBB, When compared with previous EKG from March 2018 T wave inversion no longer evident in anterior leads - LFTs: Elevated AST (57), Elevated Direct Bili (0.4), Normal ALT (32), Normal Alk Phos (65) - Troponin < 0.03 x 2, Repeat x 3 q6h - HIDA Scan - Trend LFTs - Admit to Telemetry ESRD - Creatinine of 5.3 - Dialysis on Friday, , Friday - Nephrology Consult Hyponatremia - 129 - Chronic hyponatremia based on previous admissions (baseline 130) - NSS @ 60 mls/hr - Daily BMP - Dialysis due tomorrow Hypertension - Continue home antihypertensives HLD - Continue home Atorvastatin GERD - Continue home Protonix BPH - Continue home Flomax DVT - SCDs Code Status - Full Resuscitation Resuscitation Status Full Code VTE Prophylaxis Will order VTE Prophylaxis: Yes Resident Tracking Resident Involvement: Resident Care Provided Care Provided: Adult Hospital Medicine History Patient seen and examined, chart reviewed, case discussed with Dr. Mejia and I agree with his assessment and plan as documented above. Briefly, giancarlo is an 82yo male presenting with RUQ discomfort, concern for cholecystitis. On physical exam he is afebrile, hemodynamically stable, nontoxic in appearance , scattered bruising on bilateral forearms HEENT: NC/AT, PERRL, anicteric, MMM Heart: +S1/S2, +S4, no m/r Lungs: crackles in bilateral bases Abd: +BS, soft, NT/ND, no RUQ pain on my assessment Ext: RUE AV fistula with palpable thrill Neuro: nonfocal Labs and images reviewed. AST=57, Dbili=0.4, WBC=4.78, Hg=9.7, Hct=30.4 Assessment/Plan - 82yo male with RUQ pain, concern for possible cholecystitis -Check HIDA scan -WIll hold on empiric antibiotic coverage for now -Repeat LFTs in AM -Nephrology consultation -patient for routine HD tomorrow (q T/R/Sat) -Monitor serum Na levels - patient with chronic hyponatremia, near baseline -Remainder of plan as above
[2018-06-03 21:45] VITALS: BP 199/78; PULSE 75; TEMP 36.4; Ht 172.7 cm; Wt 68.7 kg
[2018-06-03] MEDS ORDERED: SODIUM CHLORIDE 0.9% 1000ML 1,000 ML IV SCH (21:45)
[2018-06-03] MEDS: ATORVASTATIN 40 MG TAB PO SCH (22:05)
[2018-06-03] MEDS: ASPIRIN 81 MG ECTAB PO SCH (22:05)
--- NOTE | 2018-06-03 22:18 | EMERGENCY ROOM VISIT NOTE ---
History Report prepared by Alexibamanda: Gabbi Arnold Under the Supervision of: Dr. Angelo Orantes M.D. 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 He states he was sitting down watching TV when he experienced a discomfort around his chest and back.. He describes the pain as feeling like "tightness" and states he feels like he can't catch his breath deeply. He also experienced some hand numbness when his pain started. It started in his left hand and then he had it in his right hand. He denies any diaphoresis but admits to feeling lightheaded. He denies any history of previous NV's but does have 1 cardiac stent. He was given Aspirin and Nitroglycerin in the ambulance and states they possibly provided minor relief. The patient gets dialyzed on Tuesdays, and Saturdays for a history of CKD. He denies missing any recent dialysis appointments. 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 A total of 10 systems reviewed and were otherwise negative. Past Medical & Surgical Medical Problems: (1) Acute diastolic (congestive) heart failure (2) Acute respiratory failure (3) MARLENE (acute kidney injury) (4) Anemia (5) Anemia in chronic kidney disease (6) Chronic kidney disease, stage V (very severe) (7) CKD (chronic kidney disease) stage 3, GFR 30-59 ml/min (8) Hypertension (9) Hypokalemia (10) Hyponatremia (11) Iron deficiency anemia (12) Proteinuria (13) RUQ abdominal pain (14) Shortness of breath (15) Volume overload Family History Heart disease MOTHER Multiple myeloma FATHER Social History Smoking Status: Never Smoker Drug Use: none Marital Status: Housing Status: lives with significant other Occupation Status: employed Current/Historical Medications Scheduled Amlodipine (Norvasc), 10 MG PO QPM Aspirin (Aspirin Ec), 81 MG PO HS Atorvastatin (Lipitor), 80 MG PO QPM Calcium Carbonate-Vitamin D (Calcium), 1 TAB PO BID Carvedilol (Carvedilol), 25 MG PO BID Hydralazine Hcl (Apresoline), 100 MG PO TID Multivitamins/Minerals (Mvi With Minerals), 1 TAB PO DAILY Olmesartan Medoxomil (Olmesartan Medoxomil), 40 MG PO DAILY Pantoprazole (Protonix), 40 MG PO QAM Sertraline (Zoloft), 100 MG PO HS Tamsulosin Hcl (Flomax), 0.4 MG PO HS Allergies Coded Allergies: Bacitracin (Verified Allergy, Unknown, LOCALIZED RASH, 03/20/18) Neomycin (Verified Allergy, Unknown, LOCALIZED RASH, 03/20/18) Polymyxin B (Verified Allergy, Unknown, LOCALIZED RASH, 03/20/18) Physical Exam Vital Signs Date Time Temp Pulse Resp B/P (MAP) Pulse Ox O2 Delivery O2 Flow Rate FiO2 06/03/18 20:41 61 22 96 06/03/18 20:31 177/73 06/03/18 20:16 175/85 06/03/18 20:01 182/71 06/03/18 19:46 181/70 06/03/18 19:41 61 13 90 06/03/18 19:36 56 15 93 06/03/18 19:31 178/70 06/03/18 19:28 163/68 06/03/18 18:36 60 20 97 06/03/18 18:31 184/79 06/03/18 18:25 59 17 96 06/03/18 18:16 174/69 06/03/18 18:10 63 16 98 06/03/18 18:01 184/65 06/03/18 17:55 62 12 97 06/03/18 17:46 174/69 06/03/18 17:40 63 20 95 06/03/18 17:31 177/86 06/03/18 17:25 62 20 95 06/03/18 17:16 178/69 06/03/18 17:10 61 18 93 06/03/18 17:09 184/72 06/03/18 17:09 62 22 184/72 98 Room Air 06/03/18 16:47 96 Room Air 06/03/18 16:47 96 Room Air 06/03/18 16:47 37.2 65 20 175/66 96 Room Air 06/03/18 16:43 175/66 Physical Exam Constitutional: Vital signs reviewed. Eyes: Pupils are equal round reactive to light. Conjunctiva are noninjected. ENT: Pharynx is clear without erythema or exudate. Mucous membranes are moist. Neck supple without meningeal signs. Respiratory: Clear to auscultation bilaterally. Breath sounds are equal bilaterally. Cardiovascular: Regular rate and rhythm. No rubs or gallops. GI: Soft, nondistended with upper abdominal tenderness. Bowel sounds are present. Musculoskeletal: Mild pitting edema to the legs. No lower extremity tenderness. Integumentary: No cyanosis. Neurological: The patient is awake and alert. No focal deficits. Psychiatric: Normal affect. Medical Decision & Procedures ER Provider Diagnostic Interpretation: Radiology results as stated below per my review and the radiologist's interpretation: CHEST ONE VIEW PORTABLE CLINICAL HISTORY: cp dyspnea COMPARISON STUDY: 03/20/2018 FINDINGS: Mild increase in cardiac size. Mild prominence of pulmonary vasculature. Diaphragms are smooth. IMPRESSION: Cardiomegaly. Early congestive heart failure. The above report was generated using voice recognition software. It may contain grammatical, syntax or spelling errors. Electronically signed by: John Willams M.D. 06/03/2018 5:11 PM ABDOMINAL ULTRASOUND, RIGHT UPPER QUADRANT HISTORY: Right upper quadrant abdominal pain. COMPARISON: Renal ultrasound December 17, 2015. FINDINGS: Liver morphology is normal. Liver is slightly echogenic. Mild dilatation of the common bile duct, measuring 8 mm, is noted. The pancreas is obscured by overlying bowel gas. The gallbladder is mildly distended. No sonographic Campos sign was noted. A small amount of echogenic nonshadowing material within the gallbladder may reflect tiny stones or sludge. There is no gallbladder wall thickening. There is no right hydronephrosis. The right kidney is echogenic. Multiple small cysts are noted within the right kidney. IMPRESSION: 1. Suspected tiny stones within the gallbladder. Mild gallbladder distention. No gallbladder wall thickening or sonographic Campos sign. No definite evidence for acute cholecystitis although a hepatobiliary scan could be obtained if clinically indicated. 2. Mild dilatation of the common bile duct. No common bile duct calculi identified although distal common bile duct obscured. Finding could be correlated with obstructive liver function tests. 3. Obscured pancreas. 4. Echogenic right kidney consistent with medical renal disease. Electronically signed by: Fabricio Gamez M.D. 06/03/2018 8:01 PM Laboratory Results 06/03/18 16:27 Red Blood Count 3.16, Mean Corpuscular Volume 96.2, Mean Corpuscular Hemoglobin 30.7, Mean Corpuscular Hemoglobin Concent 31.9, Mean Platelet Volume 10.5, Neutrophils (%) (Auto) 63.2, Lymphocytes (%) (Auto) 17.4, Monocytes (%) (Auto) 16.5, Eosinophils (%) (Auto) 2.3, Basophils (%) (Auto) 0.4, Neutrophils # (Auto ) 3.02, Lymphocytes # (Auto) 0.83, Monocytes # (Auto) 0.79, Eosinophils # (Auto ) 0.11, Basophils # (Auto) 0.02 06/03/18 16:27 Test 06/03/18 16:27 06/03/18 17:37 06/03/18 19:58 White Blood Count 4.78 K/uL (4.8-10.8) Red Blood Count 3.16 M/uL (4.7-6.1) Hemoglobin 9.7 g/dL (14.0-18.0) Hematocrit 30.4 % (42-52) Mean Corpuscular Volume 96.2 fL (80-100) Mean Corpuscular Hemoglobin 30.7 pg (25-34) Mean Corpuscular Hemoglobin Concent 31.9 g/dl (32-36) Platelet Count 147 K/uL (130-400) Mean Platelet Volume 10.5 fL (7.4-10.4) Neutrophils (%) (Auto) 63.2 % Lymphocytes (%) (Auto) 17.4 % Monocytes (%) (Auto) 16.5 % Eosinophils (%) (Auto) 2.3 % Basophils (%) (Auto) 0.4 % Neutrophils # (Auto) 3.02 K/uL (1.4-6.5) Lymphocytes # (Auto) 0.83 K/uL (1.2-3.4) Monocytes # (Auto) 0.79 K/uL (0.11-0.59) Eosinophils # (Auto) 0.11 K/uL (0-0.5) Basophils # (Auto) 0.02 K/uL (0-0.2) RDW Standard Deviation 54.9 fL (36.4-46.3) RDW Coefficient of Variation 15.6 % (11.5-14.5) Immature Granulocyte % (Auto) 0.2 % Immature Granulocyte # (Auto) 0.01 K/uL (0.00-0.02) Anion Gap 7.0 mmol/L (3-11) Est Creatinine Clear Calc Drug Dose 10.4 ml/min Estimated GFR () 10.8 Estimated GFR (Non- 9.3 BUN/Creatinine Ratio 9.5 (10-20) Calcium Level 8.7 mg/dl (8.5-10.1) Total Bilirubin 0.9 mg/dl (0.2-1) Direct Bilirubin 0.4 mg/dl (0-0.2) Aspartate Amino Transf (AST/SGOT) 57 U/L (15-37) Alanine Aminotransferase (ALT/SGPT) 32 U/L (12-78) Alkaline Phosphatase 65 U/L (45-117) Total Protein 6.9 gm/dl (6.4-8.2) Albumin 3.7 gm/dl (3.4-5.0) Lipase 329 U/L (73-393) Prothrombin Time 11.6 SECONDS (9.0-12.0) Prothromb Time International Ratio 1.1 (0.9-1.1) Activated Partial Thromboplast Time 28.5 SECONDS (21.0-31.0) Partial Thromboplastin Ratio 1.1 Bedside Troponin I < 0.030 ng/ml (0-0.045) Laboratory results as reviewed by me. Medications Administered Medications (Trade) Dose Ordered Sig/Manish Route Start Time Stop Time Status Last Admin Dose Admin Nitroglycerin (Nitroglycerin 2% Oint) 0.5 inch NOW ONCE EXT 06/03/18 17:00 06/03/18 17:51 DC 06/03/18 17:09 0.5 INCH Morphine Sulfate (MoRPHine SULFATE INJ) 4 mg NOW STAT IV 06/03/18 17:50 06/03/18 17:51 DC 06/03/18 18:10 4 MG Ondansetron HCl (Zofran Inj) 4 mg NOW STAT IV 06/03/18 17:50 06/03/18 17:51 DC 06/03/18 18:10 4 MG ECG Per My Interpretation Indication: chest pain Rate (beats per minute): 64 Rhythm: sinus rhythm Findings: 1st degree AV block, other (No concordant ST elevations) Change: no significant change (No change from March 22, 2018) ED Course 164: The patient was evaluated in room A9. A complete history and physical exam was performed. 1700: Nitroglycerin 2% 0.5 inch EXT. 1744: I reevaluated the patient. He states now he is belching a lot. He still has chest pain or discomfort, he cant tell which. On reexamination he has tenderness in the RUQ. 1749: Zofran 4 mg IV, Morphine Sulfate 4 mg IV. 2044: Zofran 4 mg IV, NSS 1000 ml @ 60 mls/hr IV. 2050: I discussed the patients case with Dr. Fisher, [facility] Hospitalist. The patient will be further evaluated. 2054: I reevaluated the patient. He is resting comfortably. I discussed my recommendation he remain in the hospital for further evaluation and management and he verbalized complete understanding and agreement. 2100: Acetaminophen 100 ml @ 400 mls/hr IV. Medical Decision This is an 82-year-old male who presents with chest pain. Differential diagnosis includes unstable angina, NV, pneumonia, pneumothorax, GERD, cholelithiasis. I did perform a limited focused review of portions of the patient's old chart on the electronic medical record. The patient was admitted in March 2017 for heart failure. I did evaluate the patient as noted above. 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 I did treat him with nitroglycerin paste. He had no relief of his symptoms. He was given morphine and Zofran IV. I did order and personally review the patient's 12-lead EKG and chest x-ray as described above. I did order and review the patient's blood work as noted in the electronic medical record. Troponin is negative 2. I did order an ultrasound of the right upper quadrant. I did review the images myself as well as the radiology report as described above. There is evidence of gallstones but no cholecystitis. There is CBD dilatation. I did reassess the patient. I did discuss the test results with him. He is feeling better. He continues to have right upper quadrant tenderness. I did recommend hospitalization for further care. I did discuss the case with the hospitalist and clinical case manager. Medication Reconcilliation Current Medication List: was personally reviewed by me Blood Pressure Screening Patient's blood pressure: Elevated blood pressure Blood pressure disposition: Referred to PCP Consults Time Called: 2049 Consulting Physician: Dr. Fisher [facility] Hospitalist Returned Call: 2050 [facility] the [facility] The patient will be further evaluated. Impression Primary Impression: Biliary colic Additional Impressions: Acute chest pain End stage renal disease Hyponatremia Chronic anemia Scribe Attestation The scribe's documentation has been prepared under my direct and personally reviewed by me in its entirety. I confirm that the note above accurately reflects all work, treatment, procedures, and medical decision making performed by me. Departure Information Dispostion Being Evaluated By Hospitalist Referrals Gautam Joseph M.D. (PCP) Patient Instructions My [facility] Health Problem Qualifiers
[2018-06-03] MEDS: TAMSULOSIN HCL 0.4 MG CAP PO SCH (22:42)
[2018-06-03] MEDS: SERTRALINE HCL 100 MG TAB PO SCH (22:42)
[2018-06-04] VITALS (23 sets, daily range): BP systolic 121–194; BP diastolic 52–83; PULSE 46–57; TEMP 36.4–37; O2SAT 91–97
[2018-06-04 02:27] LABS: BASO % 0.4 %; BASO ABS # 0.02 K/uL (0-0.2); EOS % 3.9 %; EOS ABS # 0.22 K/uL (0-0.5); HEMATOCRIT 31.5 % (42-52); HEMOGLOBIN 10.1 g/dL (14.0-18.0); IG# 0.02 K/uL (0.00-0.02); LYMPH % 14.2 %; LYMPH ABS # 0.79 K/uL (1.2-3.4); MEAN CELL VOLUME 96.6 fL (80-100); MEAN CORPUSCULAR HGB CONC 32.1 g/dl (32-36); MEAN PLATELET VOLUME 10.2 fL (7.4-10.4); MONO % 14.2 %; MONO ABS # 0.79 K/uL (0.11-0.59); NEUT % 66.9 %; NEUT ABS # 3.74 K/uL (1.4-6.5); PLATELET COUNT 141 K/uL (130-400); RED CELL DISTRIBUTION WIDTH CV 15.4 % (11.5-14.5); RED CELL DISTRIBUTION WIDTH SD 54.5 fL (36.4-46.3); WHITE BLOOD COUNT 5.58 K/uL (4.8-10.8)
[2018-06-04 02:58] LABS: ALBUMIN 3.5 gm/dl (3.4-5.0); CALCIUM 8.8 mg/dl (8.5-10.1); CREATININE 5.59 mg/dl (0.60-1.40); POTASSIUM 4.4 mmol/L (3.5-5.1); TOTAL PROTEIN 6.5 gm/dl (6.4-8.2)
[2018-06-04] MEDS: CEROVITE ADV FORMULA TAB PO SCH (07:23)
[2018-06-04] MEDS: OLMESARTAN MEDOXOMIL 40 MG TAB PO SCH (07:30)
[2018-06-04] MEDS: PANTOprazole SOD 40 MG TAB PO SCH (07:30)
[2018-06-04] MEDS: CARVEDILOL 25 MG TAB PO SCH ×2 (07:30→19:36)
--- NOTE | 2018-06-04 10:07 | Nephrology Consultation ---
Nephrology Consultation Date & Providers Date of Consultation: Jun 04, 2018. Primary Care Provider: Gautam Joseph M.D. Referring Provider: Reason for Consultation ESRD History of Present Illness Mr. Angelo Meyers is an 81-year-old male with ESRD. He was recently admitted to [facility] in March with fluid overload and accelerated hypertension. Bandar has been on hemodialysis since 2016. He receives HD TTS at [facility] under the care of Dr. Block. He has a LUE BC AVF placed 07/09/16. There have not been any recent complications with hemodialysis. EDW is 69.5 kg. Average UF 2-3 L. On Friday 3 kg were removed without complications. Bandar states that he was feeling well until yesterday evening when he experienced the sudden onset of substernal discomfort a rest He denies similar symptoms in the past. The pain persisted for several hours. Eventually relieved with morphine. Since that time, mild RUQ abdominal discomfort persists. No acute EKG changes were noted and troponin remains normal. Metabolic profile was unremarkable. CXR documented cardiomegaly and mild pulmonary vascular congestion with faint interstitial edema. Evidence of improvement in previously identified pleural effusion. Bandar was seen and evaluated in his hospital room this morning. At this time, he is resting comfortably. He denies dyspnea at rest. He denies lightheadedness or dizziness. He denies palpitations. He does not endorse significant orthopnea. He reports some abdominal bloating and belching yesterday evening. He has not experienced fevers or chills. Mr. Meyers denied any voiding complaints. CXR was personally reviewed this morning. EKG documented sinus bradycardia with 1 AVB and LBBB. RUQ US showing a few small gallstones. Past Medical/Surgical History Medical: 1. Coronary artery disease s/p LCx PCI w/ BMS 2. Cardiomyopathy, chronic diastolic CHF and moderate LVH, moderate inferior hypokinesis and abnormal septal motion per TTE March 2018 3. Resistant hypertension 4. Dyslipidemia 5. 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 BPH 7. Anemia 8. Secondary hyperparathyroidism 9. Chronic bradycardia 10. Multiple renal cysts Surgical: Cardiac cath w/ PCI Allergies Coded Allergies: Bacitracin (Verified Allergy, Unknown, LOCALIZED RASH, 03/20/18) Neomycin (Verified Allergy, Unknown, LOCALIZED RASH, 03/20/18) Polymyxin B (Verified Allergy, Unknown, LOCALIZED RASH, 03/20/18) Inpatient Medications Current Inpatient Medications Medications (Trade) Dose Ordered Sig/Manish Route Start Time Stop Time Status Last Admin Dose Admin Ondansetron HCl (Zofran Inj) 4 mg Q6H PRN IV 06/03/18 20:45 07/03/18 20:44 Acetaminophen 100 ml @ 400 mls/hr Q8H PRN IV 06/03/18 21:00 07/03/18 20:59 Amlodipine Besylate (Norvasc Tab) 10 mg QPM PO 06/04/18 21:00 07/04/18 20:59 Aspirin (Ecotrin Tab) 81 mg HS PO 06/03/18 22:00 07/03/18 21:59 06/03/18 22:05 81 MG Atorvastatin Calcium (Lipitor Tab) 80 mg QPM PO 06/03/18 22:00 07/03/18 21:59 06/03/18 22:05 80 MG Carvedilol (Coreg Tab) 25 mg BID PO 06/04/18 09:00 07/04/18 08:59 Hydralazine HCl (Apresoline Tab) 100 mg TID PO 06/04/18 09:00 07/04/18 08:59 06/04/18 07:30 100 MG Multivitamins/ Minerals (Multivitamin W/ Minerals Tab) 1 tab DAILY PO 06/04/18 09:00 07/04/18 08:59 Olmesartan (Benicar Tab) 40 mg DAILY PO 06/04/18 09:00 07/04/18 08:59 06/04/18 07:30 40 MG Pantoprazole Sodium (Protonix Tab) 40 mg QAM PO 06/04/18 09:00 07/04/18 08:59 06/04/18 07:30 40 MG Sertraline HCl (Zoloft Tab) 100 mg HS PO 06/03/18 22:00 07/03/18 21:59 06/03/18 22:42 100 MG Tamsulosin HCl (Flomax Cap) 0.4 mg HS PO 06/03/18 22:00 07/03/18 21:59 06/03/18 22:42 0.4 MG Family History Heart disease MOTHER Multiple myeloma FATHER Social History Smoking Status: Never Smoker Drug Use: none Marital Status: Housing Status: lives with family Occupation: employed Review of Systems A complete review of systems was performed. Pertinent positives are noted above. All other systems are negative. Physical Exam Date Time Temp Pulse Resp B/P (MAP) Pulse Ox O2 Delivery O2 Flow Rate FiO2 06/04/18 08:00 Room Air 06/04/18 07:04 36.6 46 16 163/52 (89) 95 Room Air 06/04/18 03:47 36.5 53 18 131/62 (85) 96 Room Air 06/04/18 00:03 36.4 56 18 144/58 (86) 95 Room Air 06/04/18 00:02 97 Room Air 06/03/18 21:45 36.4 75 18 199/78 06/03/18 21:24 37.2 61 22 177/73 97 06/03/18 21:01 86 Room Air 06/03/18 21:01 97 Nasal Cannula 2.0 06/03/18 20:41 61 22 96 06/03/18 20:31 177/73 18 20:16 175/85 06/03/18 20:01 182/71 06/03/18 19:46 181/70 06/03/18 19:41 61 13 90 06/03/18 19:36 56 15 93 06/03/18 19:31 178/70 18 19:28 163/68 06/03/18 18:36 60 20 97 06/03/18 18:31 184/79 18 18:25 59 17 96 06/03/18 18:16 174/69 18 18:10 63 16 98 18 18:01 184/65 18 17:55 62 12 97 06/03/18 17:46 174/69 18 17:40 63 20 95 06/03/18 17:31 177/86 06/03/18 17:25 62 20 95 18 17:16 178/69 18 17:10 61 18 93 18 17:09 184/72 18 17:09 62 22 184/72 98 Room Air 06/03/18 16:47 96 Room Air 8/15/18 16:47 96 Room Air 06/03/18 16:47 37.2 65 20 175/66 96 Room Air 06/03/18 16:43 175/66 General Appearance: WD/WN, no apparent distress Head: normocephalic, atraumatic Eyes: normal inspection, sclerae normal ENT: normal ENT inspection, pharynx normal Neck: supple, + JVD Respiratory/Chest: lungs clear, no respiratory distress, no accessory muscle use Cardiovascular: no gallop, no murmur, + bradycardia Abdomen/GI: normal bowel sounds, soft, + tenderness (mild RUQ and epigastric) Extremities/Musculoskelatal: normal inspection, no pedal edema, + pertinent finding (LUIE AVF with thrill and bruit) Neurologic/Psych: alert, normal mood/affect Laboratory Results Last 24 Hours Test 06/03/18 16:27 06/03/18 16:59 06/03/18 17:37 06/03/18 19:58 White Blood Count 4.78 K/uL Red Blood Count 3.16 M/uL Hemoglobin 9.7 g/dL Hematocrit 30.4 % Mean Corpuscular Volume 96.2 fL Mean Corpuscular Hemoglobin 30.7 pg Mean Corpuscular Hemoglobin Concent 31.9 g/dl Platelet Count 147 K/uL Mean Platelet Volume 10.5 fL Neutrophils (%) (Auto) 63.2 % Lymphocytes (%) (Auto) 17.4 % Monocytes (%) (Auto) 16.5 % Eosinophils (%) (Auto) 2.3 % Basophils (%) (Auto) 0.4 % Neutrophils # (Auto) 3.02 K/uL Lymphocytes # (Auto) 0.83 K/uL Monocytes # (Auto) 0.79 K/uL Eosinophils # (Auto) 0.11 K/uL Basophils # (Auto) 0.02 K/uL RDW Standard Deviation 54.9 fL RDW Coefficient of Variation 15.6 % Immature Granulocyte % (Auto) 0.2 % Immature Granulocyte # (Auto) 0.01 K/uL Sodium Level 129 mmol/L Potassium Level 4.7 mmol/L Chloride Level 94 mmol/L Carbon Dioxide Level 28 mmol/L Anion Gap 7.0 mmol/L Blood Urea Nitrogen 51 mg/dl Creatinine 5.30 mg/dl Est Creatinine Clear Calc Drug Dose 10.4 ml/min Estimated GFR () 10.8 Estimated GFR (Non- 9.3 BUN/Creatinine Ratio 9.5 Random Glucose 103 mg/dl Calcium Level 8.7 mg/dl Total Bilirubin 0.9 mg/dl Direct Bilirubin 0.4 mg/dl Aspartate Amino Transf (AST/SGOT) 57 U/L Alanine Aminotransferase (ALT/SGPT) 32 U/L Alkaline Phosphatase 65 U/L Total Protein 6.9 gm/dl Albumin 3.7 gm/dl Lipase 329 U/L Bedside Troponin I < 0.030 ng/ml < 0.030 ng/ml Prothrombin Time 11.6 SECONDS Prothromb Time International Ratio 1.1 Activated Partial Thromboplast Time 28.5 SECONDS Partial Thromboplastin Ratio 1.1 Test 06/04/18 02:07 06/04/18 07:44 White Blood Count 5.58 K/uL Red Blood Count 3.26 M/uL Hemoglobin 10.1 g/dL Hematocrit 31.5 % Mean Corpuscular Volume 96.6 fL Mean Corpuscular Hemoglobin 31.0 pg Mean Corpuscular Hemoglobin Concent 32.1 g/dl Platelet Count 141 K/uL Mean Platelet Volume 10.2 fL Neutrophils (%) (Auto) 66.9 % Lymphocytes (%) (Auto) 14.2 % Monocytes (%) (Auto) 14.2 % Eosinophils (%) (Auto) 3.9 % Basophils (%) (Auto) 0.4 % Neutrophils # (Auto) 3.74 K/uL Lymphocytes # (Auto) 0.79 K/uL Monocytes # (Auto) 0.79 K/uL Eosinophils # (Auto) 0.22 K/uL Basophils # (Auto) 0.02 K/uL RDW Standard Deviation 54.5 fL RDW Coefficient of Variation 15.4 % Immature Granulocyte % (Auto) 0.4 % Immature Granulocyte # (Auto) 0.02 K/uL Sodium Level 131 mmol/L Potassium Level 4.4 mmol/L Chloride Level 95 mmol/L Carbon Dioxide Level 29 mmol/L Anion Gap 7.0 mmol/L Blood Urea Nitrogen 54 mg/dl Creatinine 5.59 mg/dl Est Creatinine Clear Calc Drug Dose 9.9 ml/min Estimated GFR () 10.1 Estimated GFR (Non- 8.7 BUN/Creatinine Ratio 9.7 Random Glucose 94 mg/dl Calcium Level 8.8 mg/dl Total Bilirubin 0.9 mg/dl Direct Bilirubin 0.4 mg/dl Aspartate Amino Transf (AST/SGOT) 77 U/L Alanine Aminotransferase (ALT/SGPT) 54 U/L Alkaline Phosphatase 78 U/L Troponin I 0.021 ng/ml 0.023 ng/ml Total Protein 6.5 gm/dl Albumin 3.5 gm/dl Impression (1) End stage renal disease (2) Chronic anemia (3) Hyponatremia (4) Hypertension (5) RUQ abdominal pain Bandar Meyers is an 82-year-old male with 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 Medical history notable for resistant hypertension, coronary artery disease, chronic anemia of CKD, secondary hyperparathyroidism. He was recently admitted with volume overload. No complications with UF during hemodialysis. He presented with accelerated hypertension, chest/epigastric/RUQ pain. Cardiology evaluation has been unremarkable. HIDA scan scheduled for this morning. HD will be arranged to per TTS schedule. EDW has been 69.5 kg. Will challenge volume status slightly today. Antihypertensives continued per home regimen. Recommendations ESRD: -- HD orders entered into EMR and communicated to dialysis nurse -- UF goal 2-3 L as tolerated -- Medications appropriate for renal function Hypertension: -- Expect BP to improve with UF -- Continue home antihypertensives Anemia: -- Chronic, stable -- On Mircera as outpatient, no additional BRYANT with HD today RUQ pain: -- HIDA pending
[2018-06-04] MEDS ORDERED: SINCALIDE INJ 1.4 MCG in SODIUM CHLORIDE 0.9% 100ML 100 ML IV SCH (11:00)
--- NOTE | 2018-06-04 13:06 | DIAGNOSTIC IMAGING REPORT ---
NUCLEAR MEDICINE HEPATOBILIARY SCAN WITH GALLBLADDER EJECTION FRACTION CLINICAL HISTORY: Right upper quadrant pain. Gallstones on ultrasound. COMPARISON: Right upper quadrant ultrasound June 03, 2018. TECHNIQUE: 5.5 mCi of technetium 99m Choletec IV was injected at 11:00 AM on June 04, 2018. Immediately following injection, imaging of the abdomen was carried out for 60 minutes in the anterior projection. At this time, 1.4 mcg of Sincalide was injected IV as per protocol. Imaging was performed for an additional 45 minutes to estimate a gallbladder ejection fraction. FINDINGS: Hepatic uptake of radiotracer is prompt and homogeneous. Activity is identified within the gallbladder and common bile duct at 15 minutes. Small bowel activity is noted at 35 minutes. Following injection of sincalide, gallbladder emptying was diminished with an ejection fraction of 12%. Normal is greater than 30-35%. IMPRESSION: 1. No evidence for acute cholecystitis. 2. Diminished gallbladder ejection fraction of 12%. Differential considerations include chronic cholecystitis and gallbladder dysfunction. Electronically signed by: Fabricio Gamez M.D. 06/04/2018 1:05 PM Dictated Date/Time: 06/04/2018 1:00 PM
--- NOTE | 2018-06-04 14:46 | Progress Note ---
Subjective Date of Service: Jun 04, 2018. Subjective Pt evaluation today including: conversation w/ patient, conversation w/ family , physical exam, chart review, lab review, review of studies, conversation w/ framing consultant, review of inpatient medication list After the HIDA scan, feeling cold and freezing, required blanket, no fever and chills, no more epigastric pain or right upper quadrant Problem List Medical Problems: (1) Acute chest pain Status: Acute (2) Acute on chronic renal failure Status: Acute (3) Biliary colic Status: Acute (4) CHF (congestive heart failure) Status: Acute (5) Chronic anemia Status: Acute (6) Elevated troponin Status: Acute (7) End stage renal disease Status: Acute (8) Flash pulmonary edema Status: Acute (9) Fluid overload Status: Acute (10) Fluid overload Status: Acute (11) Hypertensive urgency Status: Acute (12) Lower extremity edema Status: Acute (13) Pneumonia Status: Acute Review of Systems Constitutional: No fever, No chills, No sweats, No weight loss, No weakness, No fatigue, No problem reported Eyes: No worsening of vision, No eye pain, No redness, No discharge, No diplopia ENT: No hearing loss, No unusual epistaxis, No nasal symptoms, No sore throat, No tinnitus, No dental problems, No trouble swallowing Respiratory: No cough, No sputum, No wheezing, No shortness of breath, No dyspnea on exertion, No dyspnea at rest, No hemoptysis Cardiac: No chest pain, No orthopnea, No PND, No edema, No claudication, No palpitations Abdomen: No pain, No nausea, No vomiting, No diarrhea, No constipation Musculoskeletal: No joint pain, No muscle pain, No swelling, No calf pain Male : No dysuria, No urinary frequency, No incontinence, No nocturia more than once/night, No slowing stream, No hematuria Neurologic: No memory loss, No paralysis, No weakness, No numbness/tingling, No vertigo, No balance problems Psychiatric: No depression symptoms, No anhedonism, No anxiety, No insomnia, No substance abuse Heme: No abnormal bleeding/bruising, No clotting problems, No swollen lymph nodes, No night sweats Endo: No fatigue, No excessive thirst, No excessive urination Skin: No rash, No itch, No new/changing skin lesions, No color change, No bleeding Objective Vital Signs Date Time Temp Pulse Resp B/P (MAP) Pulse Ox O2 Delivery O2 Flow Rate FiO2 06/04/18 13:05 36.5 57 18 194/67 (109) 91 Room Air 06/04/18 08:00 Room Air 06/04/18 07:04 36.6 46 16 163/52 (89) 95 Room Air 06/04/18 03:47 36.5 53 18 131/62 (85) 96 Room Air 06/04/18 00:03 36.4 56 18 144/58 (86) 95 Room Air 06/04/18 00:02 97 Room Air 06/03/18 21:45 36.4 75 18 199/78 06/03/18 21:24 37.2 61 22 177/73 97 06/03/18 21:01 86 Room Air 06/03/18 21:01 97 Nasal Cannula 2.0 06/03/18 20:41 61 22 96 06/03/18 20:31 177/73 06/03/18 20:16 175/85 06/03/18 20:01 182/71 06/03/18 19:46 181/70 06/03/18 19:41 61 13 90 06/03/18 19:36 56 15 93 06/03/18 19:31 178/70 06/03/18 19:28 163/68 06/03/18 18:36 60 20 97 06/03/18 18:31 184/79 18 18:25 59 17 96 06/03/18 18:16 174/69 06/03/18 18:10 63 16 98 06/03/18 18:01 184/65 06/03/18 17:55 62 12 97 06/03/18 17:46 174/69 06/03/18 17:40 63 20 95 06/03/18 17:31 177/86 06/03/18 17:25 62 20 95 06/03/18 17:16 178/69 06/03/18 17:10 61 18 93 06/03/18 17:09 184/72 18 17:09 62 22 184/72 98 Room Air 06/03/18 16:47 96 Room Air 06/03/18 16:47 96 Room Air 06/03/18 16:47 37.2 65 20 175/66 96 Room Air 06/03/18 16:43 175/66 Physical Exam General Appearance: WD/WN, no apparent distress Eyes: normal inspection, PERRL, EOMI, sclerae normal ENT: normal ENT inspection, hearing grossly normal, pharynx normal Neck: supple, no adenopathy, thyroid normal, no JVD, no carotid bruits, trachea midline Respiratory/Chest: chest non-tender, normal breath sounds, no respiratory distress, no accessory muscle use, + decreased breath sounds Cardiovascular: regular rate, rhythm, no edema, no gallop, no JVD, no murmur Abdomen: normal bowel sounds, non tender, soft, no organomegaly, no pulsatile mass Extremities: normal range of motion, non-tender, normal inspection, no pedal edema, no calf tenderness, normal capillary refill, pelvis stable Neurologic/Psychiatric: a&p mechanic II-XII nml as tested, no motor/sensory deficits, alert, normal mood/affect, oriented x 3 Skin: normal color, warm/dry, no rash Lymphatic: no adenopathy Laboratory Results Last 24 Hours Test 06/03/18 16:27 06/03/18 16:59 06/03/18 17:37 06/03/18 19:58 White Blood Count 4.78 K/uL Red Blood Count 3.16 M/uL Hemoglobin 9.7 g/dL Hematocrit 30.4 % Mean Corpuscular Volume 96.2 fL Mean Corpuscular Hemoglobin 30.7 pg Mean Corpuscular Hemoglobin Concent 31.9 g/dl Platelet Count 147 K/uL Mean Platelet Volume 10.5 fL Neutrophils (%) (Auto) 63.2 % Lymphocytes (%) (Auto) 17.4 % Monocytes (%) (Auto) 16.5 % Eosinophils (%) (Auto) 2.3 % Basophils (%) (Auto) 0.4 % Neutrophils # (Auto) 3.02 K/uL Lymphocytes # (Auto) 0.83 K/uL Monocytes # (Auto) 0.79 K/uL Eosinophils # (Auto) 0.11 K/uL Basophils # (Auto) 0.02 K/uL RDW Standard Deviation 54.9 fL RDW Coefficient of Variation 15.6 % Immature Granulocyte % (Auto) 0.2 % Immature Granulocyte # (Auto) 0.01 K/uL Sodium Level 129 mmol/L Potassium Level 4.7 mmol/L Chloride Level 94 mmol/L Carbon Dioxide Level 28 mmol/L Anion Gap 7.0 mmol/L Blood Urea Nitrogen 51 mg/dl Creatinine 5.30 mg/dl Est Creatinine Clear Calc Drug Dose 10.4 ml/min Estimated GFR () 10.8 Estimated GFR (Non- 9.3 BUN/Creatinine Ratio 9.5 Random Glucose 103 mg/dl Calcium Level 8.7 mg/dl Total Bilirubin 0.9 mg/dl Direct Bilirubin 0.4 mg/dl Aspartate Amino Transf (AST/SGOT) 57 U/L Alanine Aminotransferase (ALT/SGPT) 32 U/L Alkaline Phosphatase 65 U/L Total Protein 6.9 gm/dl Albumin 3.7 gm/dl Lipase 329 U/L Bedside Troponin I < 0.030 ng/ml < 0.030 ng/ml Prothrombin Time 11.6 SECONDS Prothromb Time International Ratio 1.1 Activated Partial Thromboplast Time 28.5 SECONDS Partial Thromboplastin Ratio 1.1 Test 06/04/18 02:07 06/04/18 07:44 06/04/18 14:00 White Blood Count 5.58 K/uL Red Blood Count 3.26 M/uL Hemoglobin 10.1 g/dL Hematocrit 31.5 % Mean Corpuscular Volume 96.6 fL Mean Corpuscular Hemoglobin 31.0 pg Mean Corpuscular Hemoglobin Concent 32.1 g/dl Platelet Count 141 K/uL Mean Platelet Volume 10.2 fL Neutrophils (%) (Auto) 66.9 % Lymphocytes (%) (Auto) 14.2 % Monocytes (%) (Auto) 14.2 % Eosinophils (%) (Auto) 3.9 % Basophils (%) (Auto) 0.4 % Neutrophils # (Auto) 3.74 K/uL Lymphocytes # (Auto) 0.79 K/uL Monocytes # (Auto) 0.79 K/uL Eosinophils # (Auto) 0.22 K/uL Basophils # (Auto) 0.02 K/uL RDW Standard Deviation 54.5 fL RDW Coefficient of Variation 15.4 % Immature Granulocyte % (Auto) 0.4 % Immature Granulocyte # (Auto) 0.02 K/uL Sodium Level 131 mmol/L Potassium Level 4.4 mmol/L Chloride Level 95 mmol/L Carbon Dioxide Level 29 mmol/L Anion Gap 7.0 mmol/L Blood Urea Nitrogen 54 mg/dl Creatinine 5.59 mg/dl Est Creatinine Clear Calc Drug Dose 9.9 ml/min Estimated GFR () 10.1 Estimated GFR (Non- 8.7 BUN/Creatinine Ratio 9.7 Random Glucose 94 mg/dl Calcium Level 8.8 mg/dl Total Bilirubin 0.9 mg/dl Direct Bilirubin 0.4 mg/dl Aspartate Amino Transf (AST/SGOT) 77 U/L Alanine Aminotransferase (ALT/SGPT) 54 U/L Alkaline Phosphatase 78 U/L Troponin I 0.021 ng/ml 0.023 ng/ml Total Protein 6.5 gm/dl Albumin 3.5 gm/dl Assessment and Plan 82 year old male admitted because of a acute chest and RUQ pain pmh of ESRD on dialysis, Diastolic CHF, HTN, CAD, HLD, and BPH Gallbladder stone and possible cholecystitis, - Gallbladder US: Which was done on June 03, 2018 resulting benign 1. Suspected tiny stones within the gallbladder. Mild gallbladder distention. No gallbladder wall thickening or sonographic Campos sign. No definite evidence for acute cholecystitis although a hepatobiliary scan could be obtained if clinically indicated. 2. Mild dilatation of the common bile duct. No common bile duct calculi identified although distal common bile duct obscured. Finding could be correlated with obstructive liver function tests. Chest x-ray, EKG, were reviewed, CXR: Cardiomegaly. Early congestive heart failure. EKG: Left axis deviation, LBBB, When compared with previous EKG from March 2018 T wave inversion no longer evident in anterior leads LFTs: Minimal elevated with elevated AST (57), Elevated Direct Bili (0.4), HIDA Scan, was done, per report below: 1. No evidence for acute cholecystitis. 2. Diminished gallbladder ejection fraction of 12%. Differential considerations include chronic cholecystitis and gallbladder dysfunction. History of GERD, will continue PPI, We will have GI consult, surgical consult if needed ESRD, nephrology on the case, dialysis is scheduled Moderate hyponatremia with history of chronic hyponatremia, 129 upon admission today is improved, will discontinue IV fluid, follow-up renal input, Hypertension HLD BPH Continue current medication, DVT with SCD, patient is full Resuscitation Continued [facility] stay due to: home environment unsafe for pt Discharge planning: home
--- NOTE | 2018-06-04 17:03 | Gastrointestinal Consultation ---
Gastrointestinal Consultation Date of Consultation: Jun 04, 2018 Attending Physician: Dr. Payne Consulting Physician: Dr. Lay/HENRY Castellano Reason for Consultation: Chest and epigastric pain. Low gall bladder EF History of Present Illness Patient is a 82 year old male with a history of CHF, ESRD on hemodialysis T,TH, Sat and CAD presenting with a sudden onset of substernal chest pain that was sharp and radiated into the epigastric and bilateral upper quadrants. The pain was associated with numbness in his bilateral hands. Concerned, he contacted EMS to bring him to the ER. He was given Nitro with no improvement but symptoms resolved after administration of IV Morphine. Since arrival, he states he has been completely asymptomatic. He has had no further abdominal or chest pain. There was no associated nausea with vomiting, fevers or chills, melena, hematochezia or fatigue. States "I feel good now and hope to go home". Laboratory testing on arrival was as follows: white blood cell count 4.78, hemoglobin 9.7, hematocrit 30.4, sodium 131, potassium 4.4, BUN 54, creatinine 5.59, TB 0.9, DB 0.4, AST 77, ALT 54, ALP 78 and lipase 329. Serial troponin levels have been normal and ECG was without any acute process. CXR with cardiomegaly and "early CHF". He also had undergone a biliary ultrasound which was remarkable for "tiny gall stones" with mild CBD dilation without Campos's sign or evidence of acute cholecystitis. HIDA with EF demonstrated a low gall bladder ejection fraction of only 12% but no evidence for acute cholecystitis. Patient continues Pantoprazole 40 mg daily which he also takes on a daily basis at home. Again, at present the patient is asymptomatic from a GI standpoint. Past Medical/Surgical History Medical Problems: (1) Acute chest pain Status: Acute (2) Acute on chronic renal failure Status: Acute (3) Biliary colic Status: Acute (4) CHF (congestive heart failure) Status: Acute (5) Chronic anemia Status: Acute (6) Elevated troponin Status: Acute (7) End stage renal disease Status: Acute (8) Flash pulmonary edema Status: Acute (9) Fluid overload Status: Acute (10) Fluid overload Status: Acute (11) Hypertensive urgency Status: Acute (12) Lower extremity edema Status: Acute (13) Pneumonia Status: Acute Past Medical History: 1. CHF 2. Chronic anemia 3. CKD on hemodialysis 4. Hypertension 5. Hypokalemia 6. Flash pulmonary edema 7. Pneumonia 8. Shortness of breath Past Surgical History: 1. EGD 2. Complete colonoscopy 3. Mohs surgery 4. AV fistula Family History Heart disease MOTHER Multiple myeloma FATHER Negative for GI malignancy or IBD Social History Smoking Status: Never Smoker Alcohol Use: occasionally Drug Use: none Marital Status: Housing Status: lives with significant other Occupation Status: employed Allergies Coded Allergies: Bacitracin (Verified Allergy, Unknown, LOCALIZED RASH, 03/20/18) Neomycin (Verified Allergy, Unknown, LOCALIZED RASH, 03/20/18) Polymyxin B (Verified Allergy, Unknown, LOCALIZED RASH, 03/20/18) Current Medications Home Meds and Scripts Medications Dose Route/Sig Max Daily Dose Days Date Category Dose Instructions Mvi With Minerals (Multivitamins/Minerals) Tab 1 Tab PO DAILY 06/03/18 Reported Olmesartan Medoxomil 40 Mg Tab 40 Mg PO DAILY 06/03/18 Reported Carvedilol 25 Mg Tab 25 Mg PO BID 03/22/18 Rx Calcium (Calcium Carbonate-Vitamin D) 1 Tab Tab 1 Tab PO BID 03/20/18 Reported Aspirin Ec (Aspirin) 81 Mg Tab 81 Mg PO HS 03/20/18 Reported Lipitor (Atorvastatin Calcium) 80 Mg Tab 80 Mg PO QPM 10/16/16 Reported Apresoline (Hydralazine Hcl) 50 Mg Tab 100 Mg PO TID 08/13/16 Reported Flomax (Tamsulosin Hcl) 0.4 Mg Cap 0.4 Mg PO HS 07/04/16 Reported Zoloft (Sertraline HCl) 100 Mg Tab 100 Mg PO HS 12/13/13 Reported Protonix (Pantoprazole Sodium) 40 Mg Tab 40 Mg PO QAM 02/11/09 Reported morning Norvasc (Amlodipine Besylate) 10 Mg Tab 10 Mg PO QPM 02/11/09 Reported supper time Review of Systems Constitutional: + see HPI Eyes: No problem reported ENT: No problem reported Respiratory: No cough, No shortness of breath Cardiac: + see HPI Abdomen: + see HPI Musculoskeletal: No problem reported Male : No problem reported Neuro: + see HPI Psych: No problem reported Endo: No problem reported Physical Exam Date Time Temp Pulse Resp B/P (MAP) Pulse Ox O2 Delivery O2 Flow Rate FiO2 06/04/18 16:30 52 162/76 06/04/18 16:15 53 156/66 06/04/18 16:00 49 151/70 06/04/18 15:45 47 124/54 06/04/18 15:30 51 150/52 06/04/18 15:15 49 139/68 06/04/18 15:00 48 128/56 06/04/18 14:45 46 121/56 06/04/18 14:30 50 151/83 06/04/18 14:15 54 167/76 06/04/18 14:00 51 173/67 06/04/18 13:55 51 173/67 (102) 06/04/18 13:05 36.5 57 18 194/67 (109) 91 Room Air 06/04/18 08:00 Room Air 06/04/18 07:04 36.6 46 16 163/52 (89) 95 Room Air 06/04/18 03:47 36.5 53 18 131/62 (85) 96 Room Air 06/04/18 00:03 36.4 56 18 144/58 (86) 95 Room Air 06/04/18 00:02 97 Room Air 06/03/18 21:45 36.4 75 18 199/78 06/03/18 21:24 37.2 61 22 177/73 97 06/03/18 21:01 86 Room Air 06/03/18 21:01 97 Nasal Cannula 2.0 06/03/18 20:41 61 22 96 06/03/18 20:31 177/73 06/03/18 20:16 175/85 06/03/18 20:01 182/71 06/03/18 19:46 181/70 06/03/18 19:41 61 13 90 06/03/18 19:36 56 15 93 06/03/18 19:31 178/70 06/03/18 19:28 163/68 06/03/18 18:36 60 20 97 06/03/18 18:31 184/79 18 18:25 59 17 96 06/03/18 18:16 174/69 18 18:10 63 16 98 06/03/18 18:01 184/65 06/03/18 17:55 62 12 97 06/03/18 17:46 174/69 06/03/18 17:40 63 20 95 06/03/18 17:31 177/86 06/03/18 17:25 62 20 95 06/03/18 17:16 178/69 06/03/18 17:10 61 18 93 06/03/18 17:09 184/72 06/03/18 17:09 62 22 184/72 98 Room Air General Appearance: no apparent distress Eyes: normal inspection ENT: hearing grossly normal Neck: supple Respiratory/Chest: lungs clear, normal breath sounds, no respiratory distress Cardiovascular: regular rate, rhythm, + systolic murmur Abdomen: normal bowel sounds, non tender, soft Extremities: no pedal edema Neurologic/Psych: alert, normal mood/affect, oriented x 3 Skin: warm/dry Laboratory Results Last 24 Hours Test 06/03/18 16:59 06/03/18 17:37 06/03/18 19:58 06/04/18 02:07 Bedside Troponin I < 0.030 ng/ml < 0.030 ng/ml Prothrombin Time 11.6 SECONDS Prothromb Time International Ratio 1.1 Activated Partial Thromboplast Time 28.5 SECONDS Partial Thromboplastin Ratio 1.1 White Blood Count 5.58 K/uL Red Blood Count 3.26 M/uL Hemoglobin 10.1 g/dL Hematocrit 31.5 % Mean Corpuscular Volume 96.6 fL Mean Corpuscular Hemoglobin 31.0 pg Mean Corpuscular Hemoglobin Concent 32.1 g/dl Platelet Count 141 K/uL Mean Platelet Volume 10.2 fL Neutrophils (%) (Auto) 66.9 % Lymphocytes (%) (Auto) 14.2 % Monocytes (%) (Auto) 14.2 % Eosinophils (%) (Auto) 3.9 % Basophils (%) (Auto) 0.4 % Neutrophils # (Auto) 3.74 K/uL Lymphocytes # (Auto) 0.79 K/uL Monocytes # (Auto) 0.79 K/uL Eosinophils # (Auto) 0.22 K/uL Basophils # (Auto) 0.02 K/uL RDW Standard Deviation 54.5 fL RDW Coefficient of Variation 15.4 % Immature Granulocyte % (Auto) 0.4 % Immature Granulocyte # (Auto) 0.02 K/uL Sodium Level 131 mmol/L Potassium Level 4.4 mmol/L Chloride Level 95 mmol/L Carbon Dioxide Level 29 mmol/L Anion Gap 7.0 mmol/L Blood Urea Nitrogen 54 mg/dl Creatinine 5.59 mg/dl Est Creatinine Clear Calc Drug Dose 9.9 ml/min Estimated GFR () 10.1 Estimated GFR (Non- 8.7 BUN/Creatinine Ratio 9.7 Random Glucose 94 mg/dl Calcium Level 8.8 mg/dl Total Bilirubin 0.9 mg/dl Direct Bilirubin 0.4 mg/dl Aspartate Amino Transf (AST/SGOT) 77 U/L Alanine Aminotransferase (ALT/SGPT) 54 U/L Alkaline Phosphatase 78 U/L Troponin I 0.021 ng/ml Total Protein 6.5 gm/dl Albumin 3.5 gm/dl Test 06/04/18 07:44 06/04/18 14:00 Troponin I 0.023 ng/ml Impression Patient is a 82 year old male admitted with substernal chest pain and bilateral upper quadrant abdominal pain. Symptoms are now resolved. Diff dx: GERD vs gastritis vs PUD vs esophageal spasm vs gall bladder disease vs other. Plan 1. As patient is no longer experiencing symptoms, do not recommend and further GI work up at this time. 2. Continue Pantoprazole 40 mg daily 1/2 hour prior to breakfast. 3. Supportive care per primary team. 4. Will follow clinical course and advise further as appropriate. Thank you for allowing us to participate in the care of this pleasant patient. If you have any questions or concerns, please do not hesitate to contact us. Agree with HENRY Castellano as above Abd: Soft, NT, ND, +BS Continue current therapy Currently asymptomatic
[2018-06-04] MEDS: SERTRALINE HCL 100 MG TAB PO SCH (19:34)
[2018-06-04] MEDS: ATORVASTATIN 40 MG TAB PO SCH (19:34)
[2018-06-04] MEDS: ASPIRIN 81 MG ECTAB PO SCH (19:34)
[2018-06-04] MEDS: TAMSULOSIN HCL 0.4 MG CAP PO SCH (19:34)
[2018-06-04] MEDS ORDERED: AMLODIPINE BESYLATE 5 MG TAB PO SCH (21:00)
[2018-06-05 00:18] VITALS: BP 156/76; PULSE 58; TEMP 37.1; O2SAT 95
[2018-06-05 04:01] VITALS: BP 166/73; PULSE 65; TEMP 37; O2SAT 95
[2018-06-05 06:04] LABS: BASO % 0.9 %; BASO ABS # 0.04 K/uL (0-0.2); EOS % 3.5 %; EOS ABS # 0.15 K/uL (0-0.5); HEMATOCRIT 32.5 % (42-52); HEMOGLOBIN 10.2 g/dL (14.0-18.0); IG# 0.02 K/uL (0.00-0.02); LYMPH % 15.2 %; LYMPH ABS # 0.66 K/uL (1.2-3.4); MEAN CELL VOLUME 98.2 fL (80-100); MEAN CORPUSCULAR HEMOGLOBIN 30.8 pg (25-34); MEAN CORPUSCULAR HGB CONC 31.4 g/dl (32-36); MEAN PLATELET VOLUME 9.4 fL (7.4-10.4); MONO % 14.8 %; MONO ABS # 0.64 K/uL (0.11-0.59); NEUT % 65.1 %; NEUT ABS # 2.82 K/uL (1.4-6.5); PLATELET COUNT 151 K/uL (130-400); RED CELL DISTRIBUTION WIDTH CV 15.4 % (11.5-14.5); RED CELL DISTRIBUTION WIDTH SD 55.3 fL (36.4-46.3); WHITE BLOOD COUNT 4.33 K/uL (4.8-10.8)
[2018-06-05 06:43] LABS: ALBUMIN 3.4 gm/dl (3.4-5.0); CALCIUM 8.6 mg/dl (8.5-10.1); CREATININE 3.96 mg/dl (0.60-1.40); POTASSIUM 4.3 mmol/L (3.5-5.1); TOTAL PROTEIN 6.9 gm/dl (6.4-8.2)
[2018-06-05 08:15] VITALS: BP 156/63; PULSE 67; TEMP 37; O2SAT 95
[2018-06-05] MEDS: OLMESARTAN MEDOXOMIL 40 MG TAB PO SCH (08:21)
[2018-06-05] MEDS: CEROVITE ADV FORMULA TAB PO SCH (08:21)
[2018-06-05] MEDS: PANTOprazole SOD 40 MG TAB PO SCH (08:22)
[2018-06-05] MEDS: CARVEDILOL 25 MG TAB PO SCH (08:23)
[2018-06-05 08:25] VITALS: PULSE 60
--- NOTE | 2018-06-05 09:43 | Nephrology Progress Note ---
Nephrology Progress Note Date of Service Jun 05, 2018. Chief Complaint ESRD Subjective No acute events overnight. No complaints this morning. Angelo feels well. He tolerated HD without complications. He is dressed and looking to be discharged. Abdominal pain and discomfort has resolved. He denies any complaints or concerns. Review of Systems A complete review of systems was performed. Pertinent positives are noted above. All other systems are negative. Vital Signs Last 8 Hrs Date Time Temp Pulse Resp B/P (MAP) Pulse Ox O2 Delivery O2 Flow Rate FiO2 06/05/18 08:25 60 06/05/18 08:15 37.0 67 18 156/63 (94) 95 Room Air 06/05/18 04:01 37.0 65 17 166/73 (104) 95 Room Air Last Recorded Weight Weight (Kilograms): 68.700 Physical Exam General Appearance: WD/WN, no apparent distress Head: normocephalic, atraumatic Eyes: normal inspection, sclerae normal ENT: normal ENT inspection, pharynx normal Neck: supple, no JVD Respiratory/Chest: lungs clear, no respiratory distress, no accessory muscle use Cardiovascular: regular rate, rhythm, no gallop Abdomen/GI: non tender, soft Extremities/Musculoskelatal: normal inspection, no pedal edema, + pertinent finding (AVF with thrill and bruit) Neurologic/Psych: alert, normal mood/affect Family History Heart disease MOTHER Multiple myeloma FATHER Social History Smoking Status: Former smoker Drug Use: none Marital Status: Housing Status: lives with family Occupation: employed Laboratory Results Past 24 Hours 06/05/18 05:46 Red Blood Count 3.31, Mean Corpuscular Volume 98.2, Mean Corpuscular Hemoglobin 30.8, Mean Corpuscular Hemoglobin Concent 31.4, Mean Platelet Volume 9.4, Neutrophils (%) (Auto) 65.1, Lymphocytes (%) (Auto) 15.2, Monocytes (%) (Auto) 14.8, Eosinophils (%) (Auto) 3.5, Basophils (%) (Auto) 0.9, Neutrophils # (Auto ) 2.82, Lymphocytes # (Auto) 0.66, Monocytes # (Auto) 0.64, Eosinophils # (Auto ) 0.15, Basophils # (Auto) 0.04 06/05/18 05:46 Test 06/04/18 19:36 06/05/18 05:46 Troponin I 0.016 ng/ml (0-0.045) White Blood Count 4.33 K/uL (4.8-10.8) Red Blood Count 3.31 M/uL (4.7-6.1) Hemoglobin 10.2 g/dL (14.0-18.0) Hematocrit 32.5 % (42-52) Mean Corpuscular Volume 98.2 fL (80-100) Mean Corpuscular Hemoglobin 30.8 pg (25-34) Mean Corpuscular Hemoglobin Concent 31.4 g/dl (32-36) Platelet Count 151 K/uL (130-400) Mean Platelet Volume 9.4 fL (7.4-10.4) Neutrophils (%) (Auto) 65.1 % Lymphocytes (%) (Auto) 15.2 % Monocytes (%) (Auto) 14.8 % Eosinophils (%) (Auto) 3.5 % Basophils (%) (Auto) 0.9 % Neutrophils # (Auto) 2.82 K/uL (1.4-6.5) Lymphocytes # (Auto) 0.66 K/uL (1.2-3.4) Monocytes # (Auto) 0.64 K/uL (0.11-0.59) Eosinophils # (Auto) 0.15 K/uL (0-0.5) Basophils # (Auto) 0.04 K/uL (0-0.2) RDW Standard Deviation 55.3 fL (36.4-46.3) RDW Coefficient of Variation 15.4 % (11.5-14.5) Immature Granulocyte % (Auto) 0.5 % Immature Granulocyte # (Auto) 0.02 K/uL (0.00-0.02) Anion Gap 6.0 mmol/L (3-11) Est Creatinine Clear Calc Drug Dose 13.9 ml/min Estimated GFR () 15.3 Estimated GFR (Non- 13.2 BUN/Creatinine Ratio 6.4 (10-20) Calcium Level 8.6 mg/dl (8.5-10.1) Magnesium Level 2.0 mg/dl (1.8-2.4) Total Bilirubin 1.0 mg/dl (0.2-1) Direct Bilirubin 0.3 mg/dl (0-0.2) Aspartate Amino Transf (AST/SGOT) 39 U/L (15-37) Alanine Aminotransferase (ALT/SGPT) 36 U/L (12-78) Alkaline Phosphatase 75 U/L (45-117) Total Protein 6.9 gm/dl (6.4-8.2) Albumin 3.4 gm/dl (3.4-5.0) Hepatitis B Surface Antigen NEG (NEG) Allergies Coded Allergies: Bacitracin (Verified Allergy, Unknown, LOCALIZED RASH, 03/20/18) Neomycin (Verified Allergy, Unknown, LOCALIZED RASH, 03/20/18) Polymyxin B (Verified Allergy, Unknown, LOCALIZED RASH, 03/20/18) Medications Current Inpatient Medications Medications (Trade) Dose Ordered Sig/Manish Route Start Time Stop Time Status Last Admin Dose Admin Ondansetron HCl (Zofran Inj) 4 mg Q6H PRN IV 06/03/18 20:45 07/03/18 20:44 Acetaminophen 100 ml @ 400 mls/hr Q8H PRN IV 06/03/18 21:00 07/03/18 20:59 Amlodipine Besylate (Norvasc Tab) 10 mg QPM PO 06/04/18 21:00 07/04/18 20:59 06/04/18 19:35 10 MG Aspirin (Ecotrin Tab) 81 mg HS PO 06/03/18 22:00 07/03/18 21:59 06/04/18 19:34 81 MG Atorvastatin Calcium (Lipitor Tab) 80 mg QPM PO 06/03/18 22:00 07/03/18 21:59 06/04/18 19:34 80 MG Carvedilol (Coreg Tab) 25 mg BID PO 06/04/18 09:00 07/04/18 08:59 06/05/18 08:23 25 MG Hydralazine HCl (Apresoline Tab) 100 mg TID PO 06/04/18 09:00 07/04/18 08:59 06/05/18 08:21 100 MG Multivitamins/ Minerals (Multivitamin W/ Minerals Tab) 1 tab DAILY PO 06/04/18 09:00 07/04/18 08:59 06/05/18 08:21 1 TAB Olmesartan (Benicar Tab) 40 mg DAILY PO 06/04/18 09:00 07/04/18 08:59 06/05/18 08:21 40 MG Pantoprazole Sodium (Protonix Tab) 40 mg QAM PO 06/04/18 09:00 07/04/18 08:59 06/05/18 08:22 40 MG Sertraline HCl (Zoloft Tab) 100 mg HS PO 06/03/18 22:00 07/03/18 21:59 06/04/18 19:34 100 MG Tamsulosin HCl (Flomax Cap) 0.4 mg HS PO 06/03/18 22:00 07/03/18 21:59 06/04/18 19:34 0.4 MG Impression (1) End stage renal disease (2) Chronic anemia (3) Hyponatremia (4) Hypertension (5) RUQ abdominal pain Bandar Meyers is an 82-year-old male with 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 Medical history notable for resistant hypertension, coronary artery disease, chronic anemia of CKD, secondary hyperparathyroidism. He was recently admitted with volume overload. No complications with UF during hemodialysis. He presented with accelerated hypertension, chest/epigastric/RUQ pain. Cardiology evaluation has been unremarkable. HIDA scan scheduled for this morning. HD will be arranged to per TTS schedule. EDW has been 69.5 kg. Will challenge volume status slightly today. Antihypertensives continued per home regimen. Recommendations ESRD: -- HD TTS -- No need for additional dialysis today -- Medications appropriate for renal function Hypertension: -- BP and volume status acceptable Anemia: -- Chronic, stable -- On Mircera as outpatient
--- NOTE | 2018-06-05 11:37 | Discharge Instructions ---
Discharge Instructions Date of Service Jun 05, 2018. Admission Reason for Admission: Ruq Abdominal Pain Discharge Discharge Diagnosis / Problem: Atypical chest pain, Discharge Goals Goal(s): Decrease discomfort, Improve function, Increase independence, Improve disease control, Improve nutritional status, Learn about illness, Diagnostic testing, Therapeutic intervention, Prevent Disease Progression, Specific goals Activity Recommendations Activity Limitations: resume your previous activity . Instructions / Follow-Up Instructions / Follow-Up You have substernal chest pain and bilateral upper quadrant abdominal pain, resolved. You have low gall bladder ejection fraction , tiny gallbladder stone No evidence of acute cholecystitis, you have heart murmur, need to follow-up this with her primary care doctor - you need to follow up with your primary care physician in 1 week, - take medication as instructed, never overdose or any misuse, or take with alcohol, because misuse of medicine may cause organ damage or , call me , or your primary care physician if have questions of discharge medicaitons. - call your primary care physician, or go to local emergency room if has any fever/chill, chest pain, shortness of breathing, nausea/vomiting/abdominal pain , facial droop/slurry speech/local weakness, or if has any questions. - fall precaution - diet as instructed - you need to follow up with your subspecialist, such as Dr. Lay if needed Current Hospital Diet Patient's current hospital diet: Low Fat Diet Discharge Diet Recommended Diet: Low Fat Diet Pending Studies Studies pending at discharge: no Medical Emergencies . Who to Call and When: Medical Emergencies: If at any time you feel your situation is an emergency, please call 911 immediately. . Non-Emergent Contact Non-Emergency issues call your: Primary Care Provider . . "Provider Documentation" section prepared by Mitch Payne. .
--- NOTE | 2018-06-05 11:47 | Discharge Summary ---
Discharge Summary Date of Service Jun 05, 2018. Discharge Summary Admission Date: Jun 03, 2018 at 20:51 Discharge Date: Jun 05, 2018 Principal Diagnosis: Atypical chest pain Problems/Secondary Diagnoses: substernal chest pain and bilateral upper quadrant abdominal pain, resolved. low gall bladder ejection fraction , tiny gallbladder stone heart murmur, Immunizations: Have You Had Influenza Vaccine: Yes History of Tetanus Vaccine?: No History of Pneumococcal: No History of Hepatitis B Vaccine: Yes Procedures: No Consultations: GI Medication Reconciliation Continued Medications: Amlodipine (Norvasc) 10 Mg Tab 10 MG PO QPM, 0 Refills supper time Aspirin (Aspirin Ec) 81 Mg Tab 81 MG PO HS Atorvastatin (Lipitor) 80 Mg Tab 80 MG PO QPM, #90 Calcium Carbonate-Vitamin D (Calcium) 1 Tab Tab 1 TAB PO BID Carvedilol (Carvedilol) 25 Mg Tab 25 MG PO BID, #60 TAB 6 Refills Hydralazine Hcl (Apresoline) 50 Mg Tab 100 MG PO TID, TAB Multivitamins/Minerals (Mvi With Minerals) Tab 1 TAB PO DAILY, TAB Olmesartan Medoxomil (Olmesartan Medoxomil) 40 Mg Tab 40 MG PO DAILY Pantoprazole (Protonix) 40 Mg Tab 40 MG PO QAM, #30 morning Sertraline (Zoloft) 100 Mg Tab 100 MG PO HS, TAB Tamsulosin Hcl (Flomax) 0.4 Mg Cap 0.4 MG PO HS, CAP Discharge Exam Sitting in chair, no complaint, doing well, no more l epigastric pain, no more l right upper quadrant pain Review of Systems: Constitutional: No fever, No chills, No sweats, No weight loss, No weakness , No fatigue, No problem reported Eyes: No worsening of vision, No eye pain, No redness, No discharge, No diplopia, No problem reported ENT: No hearing loss, No unusual epistaxis, No nasal symptoms, No sore throat, No tinnitus, No dental problems, No trouble swallowing, No problem reported Respiratory: No cough, No sputum, No wheezing, No shortness of breath, No dyspnea on exertion, No dyspnea at rest, No hemoptysis, No problem reported Cardiovascular: No chest pain, No orthopnea, No PND, No edema, No claudication, No palpitations, No problem reported Abdomen: No pain, No nausea, No vomiting, No diarrhea, No constipation, No GI bleeding, No problem reported Musculoskeletal: No joint pain, No muscle pain, No swelling, No calf pain, No problem reported Genitourinary - Male: No hematuria, No dysuria, No urinary frequency, No urinary urgency, No urinary hesitancy, No urinary retention, No urinary incontinence, No penile discharge, No lesions, No impotence, No problem reported Neurologic: No memory loss, No paralysis, No weakness, No numbness/tingling , No vertigo, No balance problems, No problem reported Psychiatric: No depression symptoms, No anhedonism, No anxiety, No insomnia , No substance abuse, No problem reported Endocrine: No fatigue, No excessive thirst, No excessive urination, No problem reported Hematologic / Lymphatic: No abnormal bleeding/bruising, No clotting problems , No swollen lymph nodes, No night sweats, No problem reported Integumentary: No rash, No itch, No new/changing skin lesions, No color change, No bleeding, No problem reported Physical Exam: General Appearance: WD/WN, no apparent distress Eyes: normal inspection, PERRL ENT: normal ENT inspection, hearing grossly normal, TMs normal Neck: supple, no adenopathy, thyroid normal Respiratory/Chest: chest non-tender, + decreased breath sounds Cardiovascular: regular rate, rhythm, no edema, no gallop, no JVD, no murmur , normal peripheral pulses, + systolic murmur Abdomen / GI: normal bowel sounds, non tender, soft, no organomegaly, normal rectal exam Extremities: normal inspection, no calf tenderness, normal capillary refill , no pedal edema, + pertinent finding (Left arm fistula for dialysis,) Neurologic/Psychiatric: 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 Suspected tiny stones within the gallbladder. Mild gallbladder distention. No gallbladder wall thickening or sonographic Campos sign. No definite evidence for acute cholecystitis although a hepatobiliary scan could be obtained if clinically indicated. 2. Mild dilatation of the common bile duct. No common bile duct calculi identified although distal common bile duct obscured. Finding could be correlated with obstructive liver function tests. Chest x-ray, EKG, were reviewed, CXR: Cardiomegaly. Early congestive heart failure. EKG: Left axis deviation, LBBB, When compared with previous EKG from March 2018 T wave inversion no longer evident in anterior leads LFTs: Minimal elevated with elevated AST (57), Elevated Direct Bili (0.4), HIDA Scan, was done, per report below: 1. No evidence for acute cholecystitis. 2. Diminished gallbladder ejection fraction of 12%. Differential considerations include chronic cholecystitis and gallbladder dysfunction. History of GERD, will continue PPI, GI input appreciated, because patient's pain was resolved, no further evaluation and treatment, for now ESRD, nephrology on the case, dialysis is scheduled Moderate hyponatremia with history of chronic hyponatremia, 129 upon admission improved, follow-up renal input, Hypertension HLD BPH Continue current medication, DVT with SCD, patient is full Resuscitation Discussed with patient and , answered all questions Instructions / Follow-Up You have substernal chest pain and bilateral upper quadrant abdominal pain, resolved. You have low gall bladder ejection fraction , tiny gallbladder stone No evidence of acute cholecystitis, you have heart murmur, need to follow-up this with her primary care doctor - you need to follow up with your primary care physician in 1 week, - take medication as instructed, never overdose or any misuse, or take with alcohol, because misuse of medicine may cause organ damage or , call me , or your primary care physician if have questions of discharge medicaitons. - call your primary care physician, or go to local emergency room if has any fever/chill, chest pain, shortness of breathing, nausea/vomiting/abdominal pain , facial droop/slurry speech/local weakness, or if has any questions. - fall precaution - diet as instructed - you need to follow up with your subspecialist, such as Dr. Lay if needed Total Time Spent: Greater than 30 minutes This includes examination of the patient, discharge planning, medication reconciliation, and communication with other providers. Discharge Instructions Please refer to the electronic Patient Visit Report (Discharge Instructions) for additional information. Additional Copies To Deysi Block MD; Gautam Joseph M.D.
[2018-06-05 12:12] VITALS: BP 156/63; PULSE 60; TEMP 37; O2SAT 95
== END 2018-06-05 12:57 | disposition home or self-care (01) | DRG 444 ==
LOC: EDBD 16:40 → C.EDA 16:41 → C.2E 20:51 → ENRESERV 21:08
PROVIDERS: ADMIT Student in an Organized Health Care Education/Training Program; ATTEND Hospitalist
DX: K80.10 Calculus of gallbladder with chronic cholecystitis without obstruction (principal); N18.6 End stage renal disease; I13.2 Hypertensive heart and chronic kidney disease with heart failure and with stage 5 chronic kidney disease, or end stage renal disease; I50.32 Chronic diastolic (congestive) heart failure; E87.1 Hypo-osmolality and hyponatremia; Z99.2 Dependence on renal dialysis; D63.1 Anemia in chronic kidney disease; E78.5 Hyperlipidemia, unspecified; K21.9 Gastro-esophageal reflux disease without esophagitis; N40.0 Benign prostatic hyperplasia without lower urinary tract symptoms; I25.10 Atherosclerotic heart disease of native coronary artery without angina pectoris; Z95.5 Presence of coronary angioplasty implant and graft; Z79.82 Long term (current) use of aspirin; Z79.899 Other long term (current) drug therapy; Z88.1 Allergy status to other antibiotic agents; Z82.49 Family history of ischemic heart disease and other diseases of the circulatory system